=== PATIENT | female | born 1960 | race Caucasian/White ===

== ENCOUNTER → 2016-04-30 | Outpatient (CLI) | payer BC ==
[~2016-04-30] MED LIST: BISO1TAB39 PO; DICY10CA12 PO; ENAL5TAB PO; RT-ALBUTEROL SULF 2.5 MG/3 ML PRE-MIX VIAL INH ONE; RT-ALBUTEROL SULF 2.5 MG/3 ML PRE-MIX VIAL ONE
== END ==
LOC: RT 12:46
PROVIDERS: ATTEND Nurse Practitioner Family
DX: R06.02 Shortness of breath (principal); R05 Cough
CPT/HCPCS: 94060; 94640; 94726; 94729

== ENCOUNTER → 2016-05-13 | Outpatient (CLI) | payer BC ==
[~2016-05-13] VITALS: Ht 170.2 cm; Wt 72.6 kg
[~2016-05-13] MED LIST changes: +CATHETER FLUSH 10 ML SYR IV PRN; +REGADENOSON 0.4 MG/5 ML SYR (LEXISCAN) IV ONE; -RT-ALBUTEROL SULF 2.5 MG/3 ML PRE-MIX VIAL INH ONE; -RT-ALBUTEROL SULF 2.5 MG/3 ML PRE-MIX VIAL ONE; +amLODIPine 5 MG (NORVASC) TAB ONE; +amLODIPine 5 MG (NORVASC) TAB PO NR
[2016-05-13 13:22] VITALS: BP 193/89
[2016-05-13 13:32] VITALS: BP 207/100
[2016-05-13 13:34] VITALS: BP 192/94
[2016-05-13 13:38] VITALS: BP 173/90
[2016-05-13 14:06] VITALS: BP 174/88
--- NOTE | 2016-05-14 07:53 | ECHOCARDIOGRAPHY REPORT ---
PROCEDURE PHYSICIAN: JUDY WITT DATE OF PROCEDURE: 05/13/2016 TWO DIMENSIONAL ECHOCARDIOGRAM REPORT PRIMARY PHYSICIAN: Dr. Taveras OTHER PHYSICIAN: REFERRING PHYSICIAN: ORDERING PHYSICIAN: ATTENDING PHYSICIAN: Dr. Gissel Witt FAMILY PHYSICIAN: READING PHYSICIAN: INDICATION FOR THE PROCEDURE: 1. Shortness of breath. 2. Dizziness. 3. Hypertension. MEASUREMENTS DERIVED VALUES LV DIAMETER (LAX) NORMALS NORMALS Diastolic (3.6-5.2) Eject. Fract. (60%+/-6%) Systolic (2.3-3.9) Diastolic Vol. % Shortening (0.22-0.42) Systolic Vol. Aortic Root IVS THICKNESS Diastolic (0.6-1.1) LVPW THICKNESS Diastolic (0.6-1.1) LA DIAMETER Systolic (2.1-3.7) FINDINGS: 1. Sinus rhythm. 2. Left atrial dimensions are mildly enlarged. Left atrial diameter is 4.1 cm. 3. Aortic root dimensions are normal. 4. Left ventricular systolic function is mildly reduced. Left ventricular ejection fraction is 45 to 50%. No LVH is present. 5. There are no wall motion abnormalities. 6. Right heart dimensions are normal. 7. There is no evidence of pericardial effusion. 8. Diastolic function is normal. 9. IVC is dilated which is 2.1 cm with no significant respiratory variation. VALVULAR STRUCTURE OF THE HEART: Mild pulmonic regurgitation, mild mitral regurgitation, mild tricuspid regurgitation. RVSP is 33 mmHg. Aortic valve is normal with no significant stenosis or regurgitation. CONCLUSION: 1. LV and RV size and function is normal. 2. LVEF is mildly reduced with an EF of 45 to 50%. 3. There is no significant valvular heart disease. 4. Mild pulmonary hypertension is present with an RVSP of 33 mmHg. 5. IVC is dilated which suggest increased right atrial pressure. Job ID: [id number] Dictated Date: 05/13/2016 14:05:20 Retail Services Professional Date: 05/14/2016 07:50:00 / milind CALLE
--- NOTE | 2016-05-14 09:00 | STRESS TEST ---
PROCEDURE PHYSICIAN: JUDY WITT DATE OF PROCEDURE: 05/13/2016 PHARMACOLOGICAL NUCLEAR STRESS TEST REPORT: PRIMARY PHYSICIAN: Dr. Celestina Taveras. ATTENDING PHYSICIAN: Dr. Gissel Witt DIAGNOSES: 1. Shortness of breath. 2. Dizziness. 3. Hypertension. PROCEDURE: The patient was brought to the stress lab after informed consent was taken. Initially we wanted to perform exercise nuclear stress test. However, the blood pressure was 204/101 mmHg. Therefore the stress test was converted to pharmacological nuclear stress test. This was done according to the Lexiscan protocol. 0.4 mg of Lexiscan was given for the stress testing. Low grade exercise was also performed. Resting heart rate was 60 bpm and blood pressure was 204/101 mmHg. Maximum heart rate was 114. Maximum blood pressure was 207/100 mmHg. Baseline EKG showed sinus rhythm. There were occasional PVCs noted. There was no chest pain or shortness of breath. The stress test was completed secondary to completion of protocol. 9.61 mCi of Myoview were given for rest images and 32.5 mCi of Myoview were given for stress images. Review of myocardial perfusion imaging showed a TID of 1.11. Ejection fraction of 64%. End-diastolic volume was 62 mL and end-systolic volume of 22 mL. Gated images show normal wall motion. There is a small, mild severity apical/distal anterior reversible perfusion defect. CONCLUSION: 1. Pharmacological stress test was negative for ischemia. 2. The patient was severely hypertensive. She was given her home medication which included bisoprolol and hydrochlorothiazide. She was also given 5 mg of amlodipine and was started on 5 mg of amlodipine every day. 3. There is a small, mild severity apical/distal anterior reversible defect and presence of normal wall motion, this may be an artifact. Clinical correlation is recommended. Job ID: [id number] Dictated Date: 05/13/2016 14:34:14 Java Security Engineer Date: 05/14/2016 08:54:15 / milind
== END ==
LOC: CARD 10:46
PROVIDERS: ATTEND Internal Medicine Interventional Cardiology
DX: I10 Essential (primary) hypertension (principal); R42 Dizziness and giddiness; R06.02 Shortness of breath; Z82.49 Family history of ischemic heart disease and other diseases of the circulatory system; Z82.3 Family history of stroke
CPT/HCPCS: 78452; 93017; 93306

== ENCOUNTER → 2016-05-13 | Outpatient (CLI) | payer BC ==
[~2016-05-13] MED LIST changes: -CATHETER FLUSH 10 ML SYR IV PRN; +IOHEXOL 350 MG/ML 100 ML (OMNIPAQUE 350) VIAL IV ONE; +NS 100 ML (IVPB) BAG IV ONE; -REGADENOSON 0.4 MG/5 ML SYR (LEXISCAN) IV ONE; -amLODIPine 5 MG (NORVASC) TAB ONE; -amLODIPine 5 MG (NORVASC) TAB PO NR
--- NOTE | 2016-05-13 15:49 | Diagnostic Imaging Report ---
PROCEDURE: CT chest with contrast only. TECHNIQUE: Multiple contiguous axial images were obtained through the chest after administration of intravenous contrast. INDICATION: Persistent cough, shortness of breath, chest pain symptoms since December. CONTRAST: 75 mL Omnipaque 350 was given intravenously. COMPARISON STUDY: Chest from 02/15/2011. FINDINGS: Vascular structures appear normal. No calcification is present. No pulmonary emboli are identified. The heart size is normal. There is no abnormal adenopathy. The visualized portions of the abdomen appear normal. The lungs are clear. No pleural effusions or pulmonary nodules are present. The osseous structures demonstrate some lateral osteophytes. No osseous stenosis is present. No fractures are identified. IMPRESSION: There are minimal degenerative changes of the thoracic spine. No acute findings are seen in the chest. Dictated by: Dictated on workstation # [id number]
== END ==
LOC: RAD 12:17
PROVIDERS: ATTEND Nurse Practitioner Family
DX: R05 Cough (principal); R06.02 Shortness of breath
CPT/HCPCS: 71260

== ENCOUNTER → 2016-05-13 | Outpatient (CLI) | payer BC ==
[~2016-05-13] MED LIST changes: -IOHEXOL 350 MG/ML 100 ML (OMNIPAQUE 350) VIAL IV ONE; -NS 100 ML (IVPB) BAG IV ONE
[2016-05-13 11:35] LABS: ALBUMIN 4.4 G/DL (3.2-4.5); BILIRUBIN,TOTAL 0.3 MG/DL (0.1-1.0); CALCIUM 9.7 MG/DL (8.5-10.1); CREATININE SERUM 1.03 MG/DL (0.60-1.30); POTASSIUM 3.7 MMOL/L (3.6-5.0); TOTAL PROTEIN 7.3 G/DL (6.4-8.2)
== END ==
LOC: LAB 10:50
PROVIDERS: ATTEND Nurse Practitioner Family
DX: R06.02 Shortness of breath (principal); R05 Cough
CPT/HCPCS: 36415; 80053

== ENCOUNTER 2016-08-13 11:35 | Outpatient (RCR) | payer BC | END 2016-08-24 12:02 | disposition home or self-care (01) | PROVIDERS: ATTEND Emergency Medicine | DX: G56.12 Other lesions of median nerve, left upper limb (principal) ==

== ENCOUNTER → 2017-01-14 | Outpatient (CLI) | payer BC ==
[~2017-01-14] MED LIST changes: +BENZ-36 PO; +CLON0.1T PO; +DOCU-143 PO; +DOXY100T2 PO; +ESOM40CA52 PO; +LORA0.5T PO; +NEBI5TAB8 PO; +OSEL75CA15 PO; +SUCR1TAB PO; +VALS80TA30 PO
== END ==
LOC: CARD 10:34
PROVIDERS: ATTEND Internal Medicine Interventional Cardiology
DX: I42.9 Cardiomyopathy, unspecified (principal)
CPT/HCPCS: 93306

== ENCOUNTER 2017-01-27 16:37 | Inpatient (IN) | payer BC ==
[~2017-01-27] VITALS: Ht 170.2 cm; Wt 72.6 kg
[~2017-01-27 16:37] MED LIST changes: -BENZ-36 PO; -CLON0.1T PO; -DOCU-143 PO; -DOXY100T2 PO; -ESOM40CA52 PO; -LORA0.5T PO; -NEBI5TAB8 PO; -OSEL75CA15 PO; -SUCR1TAB PO; -VALS80TA30 PO
--- OUTSIDE RECORDS SUMMARY | 2017-01-27 16:42 | XMS REPORT | Continuity of Care Document ---
Author Author [employer] Organization [facility] Address Unknown Phone Unavailable Care Team Providers Care Pianos [employer] Salesperson Name Role Phone [employer] Unavailable Unavailable Problems Medications Allergies, Adverse Reactions, Alerts Immunizations Results Vital Signs Encounters Location Location Details Encounter Type Encounter Number Reason For Visit Attending Provider ADM Date DC Date Status Source OUTPATIENT [id number] Kennedy GONGORA 12/15/2016 12/15/2016 Active [facility] OP SURGERY [id number] Active [facility] Brenda GONGORA Active [facility] Procedures Plan of Care Social History Assessment and Plan Family History Value Date Source Advance Directives Order Name Results Value Date Source
--- OUTSIDE RECORDS SUMMARY | 2017-01-27 16:42 | XMS REPORT | Encounter Summary ---
Author Author [facility] Organization [facility] Address Unknown Phone Unavailable Care Team Providers Care External Auditor Name Role Phone PCP Unavailable Encounter Details Date Type Department Care Team Description 01/20/2017 Procedure Pass Main Operating Room [address] [place] [address] Social History Tobacco Use Types Packs/Day Years Used Date Never Smoker Smokeless Tobacco: Never Used Sex Assigned at Date Recorded Not on file as of this encounter Plan of Treatment Not on fileas of this encounter Visit Diagnoses Not on filein this encounter
--- OUTSIDE RECORDS SUMMARY | 2017-01-27 16:42 | XMS REPORT | Clinical Summary ---
Author Author [facility] Organization [facility] Address Unknown Phone Unavailable Care Team Providers Care Heating Repair Technician Name Role Phone PCP Unavailable Source Comments Some departments are not documenting in the electronic medical record. If you do not see the information that you expected, contact Release of Information in the Health Information Management department at [phone] for further assistance in locating additional records.[facility] Allergies No Known Allergies Current Medications Prescription Sig. Disp. Refills Start End Date Status Date valsartan (DIOVAN) 80 mg Take 80 mg by mouth Active tablet daily. other medication (INJ) 1 Dose. Allergy shots Active oxyCODONE (ROXICODONE) 5 Take 1-2 tablets by mouth 20 tablet 0 Active mg tablet every 4 hours as needed 17 for Pain senna/docusate Take 1 tablet by mouth 30 tablet 1 01/21/20 Active (SENOKOT-S) 8.6/50 mg daily. 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 Carpal tunnel syndrome on left 12/16/2016 Overview: Added automatically from request for surgery [id number] Encounters Date Type Specialty Care Team Description 01/20/2017 Hospital Kennedy Cherry MD Carpal tunnel syndrome on Encounter left 01/20/2017 Procedure Pass 01/20/2017 Surgery Kennedy Cherry MD LEFT OPEN CARPAL TUNNEL RELEASE, MEDIAN NERVE EXPLORATION 01/19/2017 Anesthesia Viki Bell, FUNERAL CAR DRIVER Event 12/16/2016 Orders Only Orthopedic Surgery Kennedy Cherry MD Surgery, elective (Primary Dx) 12/16/2016 Prep for Case Orthopedic Surgery Kennedy Cherry MD 12/15/2016 Hospital Radiology Kennedy Cherry MD Encounter 12/15/2016 Office Visit Orthopedic Surgery Kennedy Cherry MD Surgery follow-up (Primary Dx);Carpal tunnel syndrome on left;Arthritis of left wrist from Last 3 Months Social History Tobacco Use Types Packs/Day Years Used Date Never Smoker Smokeless Tobacco: Never Used Sex Assigned at Date Recorded Not on file Last Filed Vital Signs Vital Sign Reading Time Taken Blood Pressure 144/80 01/20/2017 4:00 PM CDT Pulse 75 01/20/2017 4:00 PM CDT Temperature 36.7 C (98.1 F) 01/20/2017 2:44 PM CDT Respiratory Rate - - Oxygen Saturation 95% 01/20/2017 4:00 PM CDT Inhaled Oxygen - - Concentration Weight 74.5 kg (164 lb 3.9 oz) 01/20/2017 11:24 AM CDT Height 170.2 cm (5' 7") 01/20/2017 11:24 AM CDT Body Mass Index 25.72 01/20/2017 11:24 AM CDT Plan of Treatment Health Maintenance Due Date Last Done Comments HEPATITIS C SCREENING 1960 PHYSICAL (COMPREHENSIVE) 06/22/1966 EXAM PERTUSSIS VACCINE 06/22/1970 TETANUS VACCINE 06/22/1976 CERVICAL CANCER SCREENING 06/22/1989 BREAST CANCER SCREENING 1999 COLORECTAL CANCER 06/22/2009 SCREENING INFLUENZA VACCINE 01/23/2017 Procedures Procedure Name Priority Date/Time Associated Diagnosis Comments LEFT OPEN CARPAL TUNNEL 01/20/2017 Carpal tunnel syndrome on RELEASE, MEDIAN NERVE 11:10 AM CDT left EXPLORATION from Last 3 Months Results * FINGER MIN 2V LEFT THUMB (12/15/2016 3:08 PM) Specimen Performing Laboratory Left [facility] RAD RESULTS Impressions FINDINGS/IMPRESSION: Postsurgical changes from first [facility] resection arthroplasty in standard alignment. No evident complications. Approved by Oswaldo Nugent D.O. on 12/15/2016 4:41 PM By my electronic signature, I attest that I have personally reviewed the images for this examination and formulated the interpretations and opinions expressed in this report Finalized by Shaun Moody M.D. on 12/15/2016 5:14 PM. Dictated by Oswaldo Nugent D.O. on 12/15/2016 3:09 PM. Narrative FINGER MIN 2V LEFT THUMB CLINICAL HISTORY: Female, 56 years old. Surgery follow-up. Left thumb status post arthroplasty. COMPARISON:None TECHNIQUE:FINGER MIN 2V LEFT THUMB Procedure Note Interface, Radiant Results - 12/15/2016 5:17 PM CDT FINGER MIN 2V LEFT THUMB CLINICAL HISTORY: Female, 56 years old. Surgery follow-up. Left thumb status post arthroplasty. COMPARISON: None TECHNIQUE: FINGER MIN 2V LEFT THUMB IMPRESSION FINDINGS/IMPRESSION: Postsurgical changes from first CMC resection arthroplasty in standard alignment. No evident complications. Approved by Oswaldo Nugent D.O. on 12/15/2016 4:41 PM By my electronic signature, I attest that I have personally reviewed the images for this examination and formulated the interpretations and opinions expressed in this report Finalized by Shaun Moody M.D. on 12/15/2016 5:14 PM. Dictated by Oswaldo Nugent D.O. on 12/15/2016 3:09 PM. from Last 3 Months
--- OUTSIDE RECORDS SUMMARY | 2017-01-27 16:43 | XMS REPORT | Encounter Summary ---
Author Author [facility] Organization [facility] Address Unknown Phone Unavailable Care Team Providers Care Car Jockey Name Role Phone PCP Unavailable Reason for Visit * Auth/Cert Status Reason Specialty Diagnoses / Referred By Referred To Procedures Contact Contact Diagnoses Carpal tunnel syndrome on left unknown P rocedures UT NEUROPLASTY &/TRANSPOS MEDIAN NRV CARPAL TUNNE UT NEUROPLASTY &/TRANSPOS MEDIAN NRV CARPAL TUNNE Left open carpal tunnel release, possible nerve wrapping versus nerve graft Encounter Details Date Type Department Care Team Description 01/20/2017 Hospital Main Operating Room Kennedy Cherry MD Carpal tunnel syndrome on Encounter [address] [place] [address] [address] [place] [address] [phone] Social History Tobacco Use Types Packs/Day Years Used Date Never Smoker Smokeless Tobacco: Never Used Sex Assigned at Date Recorded Not on file as of this encounter Last Filed Vital Signs Vital Sign Reading [...] Mass Index 25.72 01/20/2017 11:24 AM CDT in this encounter Medications at Time of Discharge Medication Sig. Disp. Refills Start Date End Date other medication (INJ) 1 Dose. Allergy shots oxyCODONE (ROXICODONE) 5 Take 1-2 tablets by mouth 20 tablet 0 2016 mg tablet every 4 hours as needed for Pain senna/docusate Take 1 tablet by mouth 30 tablet 1 01/20/2017 (SENOKOT-S) 8.6/50 mg daily. tablet valsartan (DIOVAN) 80 mg Take 80 mg by mouth tablet daily. as of this encounter H&P Notes * Lesley Cowan PA-C - 01/20/2017 7:12 AM CDT Formatting of this note may be different from the original. Admission History and Physical Examination Name: Brie Lantigua Admission Date: 01.20.17 Assessment/Plan: Principal Problem: Carpal tunnel syndrome on left Left open carpal tunnel release, possible nerve wrapping vs nerve graft __ Primary Care Physician: Referral Self Chief Complaint: Left hand numbness History of Present Illness: Brie Lantigua is a 56 y.o. female presents with a history of a prior basilar thumb arthroplasty and carpal tunnel release with current complaints of worsening carpal tunnel symptoms. She would now like to proceed with the above operation. She understands the risks and benefits. History of Present Illness Past Medical History: Diagnosis Date HTN (hypertension) Past Surgical History: Procedure Laterality Date APPENDECTOMY CARPAL TUNNEL RELEASE Left ELBOW SURGERY epicondylitis reconstruction Right FOOT SURGERY Tendon Left SURGERY suspension arthorplasty Left No family history on file. Social History Social History Marital status: Spouse name: N/A Number of children: N/A Years of education: N/A Social History Main Topics Smoking status: Never Smoker Smokeless tobacco: Never Used Alcohol use Not on file Drug use: Not on file Sexual activity: Not on file Other Topics Concern Not on file Social History Narrative No narrative on file Immunizations (includes history and patient reported): There is no immunization history on file for this patient. Allergies: Review of patient's allergies indicates no known allergies. Medications: No current facility-administered medications for this encounter. Current Outpatient Prescriptions Medication Sig other medication (INJ) 1 Dose. Allergy shots valsartan (DIOVAN) 80 mg tablet Take 80 mg by mouth daily. ROS Physical Exam MSK: Full ROM left wrist and hand Neuro: Positive tinel's and phalens left wrist Skin: Intact, no infection Vital Signs: Last Filed In 24 Hours Vital Signs: 24 Hour Range Lab/Radiology/Other Diagnostic Tests: Pertinent labs reviewed Pertinent radiology reviewed. Lesley COWAN PA-C Pager in this encounter Miscellaneous Notes * Procedures (Immed Post or Bedside) - Benson Singh MD - 01/20/2017 2: 31 PM CDT Brief Operative Note Name: Brie Lantigua is a 56 y.o. female : 1960 DATE OF OPERATION: 01/20/2017 Date: 01/20/2017 Preoperative Dx: Carpal tunnel syndrome on left [G56.02] Post-op Diagnosis * Carpal tunnel syndrome on left [G56.02] Procedure(s) (LRB): LEFT OPEN CARPAL TUNNEL RELEASE, MEDIAN NERVE EXPLORATION (Left) Anesthesia Type: Defer to Anesthesia Surgeon(s) and Role: * Kennedy Cherry MD - Primary * Benson Singh MD - Resident - Assisting Findings: Intact transverse carpal ligament Estimated Blood Loss: No blood loss documented. Specimen(s) Removed/Disposition: * No specimens in log * Complications: None Implants: None Drains: None Disposition: PACU - stable Benson Singh MD Pager [phone] in this encounter Plan of Treatment Not on fileas of this encounter Procedures Procedure Name Priority Date/Time Associated Diagnosis Comments LEFT OPEN CARPAL TUNNEL 01/20/2017 Carpal tunnel syndrome on RELEASE, MEDIAN NERVE 11:10 AM CDT left EXPLORATION in this encounter Visit Diagnoses Diagnosis Carpal tunnel syndrome on left Carpal tunnel syndrome in this encounter Admitting Diagnoses Diagnosis Carpal tunnel syndrome on left - unknown Carpal tunnel syndrome in this encounter Administered Medications Medication Order MAR Action Action Date Dose Rate Site fentaNYL citrate PF (SUBLIMAZE) Given 01/20/2017 50 mcg injection 50 mcg 15:00 CDT 50 mcg, Intravenous, EVERY 5 MIN PRN, Starting So 01/20/17 at 1405, Until So 01/20/17 at 1838, Pain Injectable, For Pain Score 7-10, Maximum total dose of 200 mcg Hold for RR < 10 Given 01/20/2017 25 mcg 15:22 CDT Given 01/20/2017 25 mcg 15:28 CDT lactated ringers infusion Given - New 01/20/2017 1,000 mL 20 mL/hr 1,000 mL, 1,000 mL, Intravenous, at 20 Bag 11:38 CDT mL/hr, CONTINUOUS, Starting So 01/20/17 at 1115, Until So 01/20/17 at 1838, Pre-Op Given - New Bag 01/20/2017 13:59 CDT oxyCODONE (ROXICODONE, OXY-IR) tablet Given 01/20/2017 10 mg 5-10 mg 15:11 CDT 5-10 mg, Oral, EVERY 4 HOURS PRN, Starting So 01/20/17 at 1457, Until So 01/20/17 at 1838, Pain PO, PACU (only) in this encounter
--- OUTSIDE RECORDS SUMMARY | 2017-01-27 16:43 | XMS REPORT | Encounter Summary ---
Author Author [facility] Organization [facility] Address Unknown Phone Unavailable Care Team Providers Care Vegetable Harvest Machine Operator Name Role Phone PCP Unavailable Reason for Referral * Consult, Test & Treat Status Reason Specialty Diagnoses / Referred By Referred To Procedures Contact Contact New Request Specialty Diagnoses Kennedy Cherry Services Surgery, Required elective [address] [place] [address] Encounter Details Date Type Department Care Team Description 12/16/2016 Orders Only [facility] Kennedy Cherry MD Surgery , elective Physicians - Orthopedics [address] [facility] (Primary Dx) [address]ST AND [address]ND FLOOR [address] [place] [address] ORTHOPEDICS [facility] [phone] [place] [address] Social History Tobacco Use Types Packs/Day Years Used Date Never Smoker Smokeless Tobacco: Never Used Sex Assigned at Date Recorded Not on file as of this encounter Plan of Treatment Name Priority Associated Diagnoses Order Schedule AMB REFERRAL TO PRE ANESTHESIA TESTING Routine Surgery, elective Ordered : 12/16/2016 as of this encounter Visit Diagnoses Diagnosis Surgery, elective - Primary Unspecified elective surgery for purposes other than remedying health states in this encounter
--- OUTSIDE RECORDS SUMMARY | 2017-01-27 16:43 | XMS REPORT | Encounter Summary ---
Author Author [facility] Organization [facility] Address Unknown Phone Unavailable Care Team Providers Care Timber Repairer Name Role Phone PCP Unavailable Reason for Visit * Reason Comments Consult Encounter Details Date Type Department Care Team Description 12/15/2016 Office Visit [facility] Kennedy Cherry MD Surgery follow-up Physicians - Orthopedics [address] [facility] (Primary Dx);Carpal 1ST AND 2ND FLOOR MS 3017 tunnel syndrome on [address] [place] [address] left;Arthritis of left ORTHOPEDICS [facility] [phone] [place] [address] Social History Tobacco Use Types Packs/Day Years Used Date Never Smoker Smokeless Tobacco: Never Used Sex Assigned at Date Recorded Not on file as of this encounter Last Filed Vital Signs Vital Sign Reading Time Taken Blood Pressure 174/80 12/15/2016 2:40 PM CDT Pulse 67 12/15/2016 2:40 PM CDT Temperature - - Respiratory Rate - - Oxygen Saturation - - Inhaled Oxygen - - Concentration Weight 75.7 kg (166 lb 12.8 oz) 12/15/2016 2:40 PM CDT Height - - Body Mass Index - - in this encounter Progress Notes * Kennedy Cherry MD - 12/15/2016 3:10 PM CDT HISTORY OF PRESENT ILLNESS: Brie, who goes by Lisah, 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 She is seeing us today for problems with her left basilar thumb joint. She had a trapezial arthroplasty and utilization of a tightrope type suspension on 06/11/14. She says afterward she had severe pain with what sounds like median nerve type symptoms. Therefore, on 09/24/14, she had removal of the tightrope with small plates associated with it. She says she was told she had a metal allergy. She said that was why she was having so much pain, according to the doctor who did her procedure. Unfortunately, after that procedure, she has continued to have pain. What is somewhat striking is that she said the pain is getting worse rather than better, despite the long duration from the time of both operations. She said she has pain in her thumb with wrist and twisting motions of her index finger. 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 She has considerable thenar atrophy at this point. She has had two injections with no relief. The hypopigmentation and thinness of skin would be consistent with steroid injections. She has had therapy for approximately fourteen weeks after the surgeries. PAST SURGICAL HISTORY: Appendectomy, carpal tunnel release, elbow surgery, foot surgery, and the suspension arthroplasty. PAST MEDICAL HISTORY: Hypertension. FAMILY HISTORY: Reviewed. CURRENT MEDICATIONS: Diovan. ALLERGIES: No known drug allergies. PHYSICAL EXAMINATION: Examination today shows an individual who has considerable tenderness but not so much at the basilar thumb joint, but over the thenar musculature and over the carpal canal area. She has what appears to have been an endoscopic carpal tunnel release and it appears to be through a single portal. The thenar atrophy is impressive. There is some thenar function possibly the short head of the flexor pollicis brevis. She really does not demonstrate a significantly positive grind test. There is some discomfort with the motion but otherwise it does not appear to be too severe. She is able to extend her MCP joint and the IP joint of her thumb. She complains of numbness in the median nerve distribution. She has some diffuse pains but our tests for pronator syndrome was essentially negative. There is no point tenderness near the superficialis hiatus or the pronator teres. Provocative maneuvers of flexion of the long finger through the FDS or pronation do not produce significant discomfort. Where she does have significant discomfort is over the course of the median nerve or even over the motor branch of the median nerve. She has some hypersensitivity to touch. She actually took her hand and sat on it as a way of decreasing the discomfort. She says her electrodiagnostician recommended that she get a second opinion. Today there are no overt signs of sympathetic overflow. There is not excessive sweating, color changes, or hair growth. She does not have skin changes consistent with excessive sympathetic overflow. Review of the operative note by Dr. Porras on 06/11/14 shows this was an excision of the trapezium. Tightrope was utilized. The operation on 09/24/14 reveals that utilized a centerline dilator. He then used the centerline knife that was deployed from distal to proximal fashion. He then removed the tightrope. Alfred Odell did electrodiagnostic studies on 06/23/16. Conclusion was moderate persistent left median motor reduction to the APB consistent with persistent left knee motor neuropathy, site not determined. He makes a comment that clinical exam raises concern for left pronator teres entrapment. As the patient does not have weakness in the superficialis to the index and long, nor does the patient have weakness to flexion of the IP joint of the thumb, I do not think this is a likely cause of her problems. The patient is adamant that her problems are due to her carpal tunnel area. She is also adamant that her problems began after her first operation. Her electrodiagnostic studies showed that the amplitude was 3.7 mV with lower limits of normal being 8. The electrodiagnostic studies on 05/12/15 shows the amplitude to be 4.3 mV versus 8. Latencies, however, were relatively normal. IMPRESSION: Persistent median nerve symptoms status post basilar thumb procedure and subsequent carpal tunnel release. PLAN: I am struck by this patients severe pain complaints. I am struck by the fact that she is adamant that her severe pain of this type occurred after her operation. I think the idea that this is due to pronator syndrome, is probably not the case. She really is not symptomatic in that area. I think she has some type of scarring or adhesions or something going on to her median nerve in her carpal canal, or possibly as an isolated problem to the motor branch of the median nerve. Her greatest source of discomfort is to the thumb, with both paresthesias, numbness, and of course the objective thenar atrophy. It is possible that whatever damage or whatever has occurred to the median nerve is not fixable at this very late date. I do not think the suspension arthroplasty needs to be revised, since at least on the current x-rays, there is not significant proximal migration. Her symptoms are certainly not consistent with arthropathy at the basilar thumb joint. I think if there is a surgery, she might consider an open carpal tunnel release with possible nerve wrapping if there is a selected injury to the external portion of the nerve and if that portion of the nerve has a transection, then possibly nerve grafting would be of value. I told her I am concerned about her pain response and the fact that she already has considerable pain. At this point though, she is not taking any opioids. She certainly seems to have ongoing discomfort. I would recommend that she consider an open carpal tunnel release as mentioned above. There are risks, but I think they are fairly limited. It is possible we may find nothing at all at this late date from her procedures. She would like to have the operation. They understand and accept the risks. Dictated by Kennedy Cherry MD and transcribed via [employer]. Copied and pasted into O2 by Kelly Caballero, 12/20/2016 1:31 PM * Kelly Caballero - 12/15/2016 3:10 PM CDT Formatting of this note may be different from the original. Name: Brie Lantigua Age: 56 y.o. 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 She continues to have pain in thumb and now wrist with twisting motion and index finger. She continues to have numbness & aching in thumb, and index fingers. She had 2 injections after surgery for carpal tunnel with no relief. She went to therapy for a total of 14 weeks after surgeries. Date of Injury/Duration: Mechanism of Injury: Treatment to Date/Studies: Surgical History: Past Surgical History: Procedure Laterality Date APPENDECTOMY CARPAL TUNNEL RELEASE Left ELBOW SURGERY epicondylitis reconstruction Right FOOT SURGERY Tendon Left SURGERY suspension arthorplasty Left Medical History: Past Medical History: Diagnosis Date HTN (hypertension) Family History: No family history on file. Current Medications: Outpatient Encounter Prescriptions as of 12/15/2016 Medication Sig Dispense Refill other medication (INJ) 1 Dose. Allergy shots valsartan (DIOVAN) 80 mg tablet Take 80 mg by mouth daily. No facility-administered encounter medications on file as of 12/15/2016. Allergies: Review of patient's allergies indicates no known allergies. Date of Service: 12/15/2016 Subjective: Brie Lantigua is a 56 y.o. female. History of Present Illness Review of Systems All other systems reviewed and are negative. Objective: other medication (INJ) 1 Dose. Allergy shots valsartan (DIOVAN) 80 mg tablet Take 80 mg by mouth daily. Vitals: 12/15/16 1440 BP: 174/80 Pulse: 67 Weight: 75.7 kg (166 lb 12.8 oz) There is no height or weight on file to calculate BMI. Physical Exam Assessment and Plan: in this encounter Plan of Treatment Not on fileas of this encounter Results * FINGER MIN 2V LEFT THUMB [...] Oswaldo Nugent D.O. on 12/15/2016 3:09 PM. in this encounter Visit Diagnoses Diagnosis Surgery follow-up - Primary Follow-up examination, following unspecified surgery Carpal tunnel syndrome on left Carpal tunnel syndrome Arthritis of left wrist in this encounter
--- OUTSIDE RECORDS SUMMARY | 2017-01-27 16:43 | XMS REPORT | Encounter Summary ---
Author Author [facility] Organization [facility] Address Unknown Phone Unavailable Care Team Providers Care Visual Specialist Name Role Phone PCP Unavailable Reason for Visit * Auth/Cert Status Reason Specialty Diagnoses / Referred By Referred To Procedures Contact Contact Diagnoses Carpal tunnel syndrome on left unknown P rocedures [facility] &/TRANSPOS MEDIAN NRV CARPAL TUNNE VA NEUROPLASTY &/TRANSPOS MEDIAN NRV CARPAL TUNNE Left open carpal tunnel release, possible nerve wrapping versus nerve graft Encounter Details Date Type Department Care Team Description 01/20/2017 Surgery Main Operating Room Kennedy Cherry MD LEFT OPEN CARPAL TUNNEL [address], [place] [address] [address] [phone] [place] [address] [phone] Social History Tobacco Use Types Packs/Day Years [...] PACU - stable Benson Singh MD Pager [phone] in this encounter Plan of Treatment Not [...] Given - New Bag 01/20/2017 13:59 CDT ortho irrigation 1 L bottle Given 01/20/2017 1,000 mL Hand, Left INTRA-PROCEDURE MED, Starting So 13:06 CDT 01/20/17 at 1306, Until So 01/20/17 at 1838, Intra-op oxyCODONE (ROXICODONE, OXY-IR) tablet Given 01/20/2017 10 mg 5-10 mg 15:11 CDT 5-10 mg, Oral, EVERY 4 HOURS PRN, Starting So 01/20/17 at 1457, Until So 01/20/17 at 1838, Pain PO, PACU (only) ropivacaine (PF) (NAROPIN) 0.2% (2 Given 01/20/2017 8 mL Hand, Left mg/mL) injection 14:15 CDT INTRA-PROCEDURE MED, Starting So 01/20/17 at 1415, Until So 01/20/17 at 1838, Intra-op in this encounter
--- OUTSIDE RECORDS SUMMARY | 2017-01-27 16:43 | XMS REPORT | Continuity of Care Document ---
Author Author [facility] Organization [facility] Address Unknown Phone Unavailable Allergies Active Description Code Type Severity Reaction Onset Reported/Identified Relationship to Patient Clinical Status Yes NKANo Known Allergies NKA Miscellaneous Allergy Unknown N/ A 10/20/2006 Medications Problems Date Dx Coded Attending Type Code Diagnosis Diagnosed By 03/24/1201 ALONZO COVINGTON DO Ot G56.12 OTHER LESIONS OF MEDIAN NERVE, LEFT UPPE 02/15/2011 Ot 530.81 ESOPHAGEAL REFLUX 02/15/2011 Ot 569.89 INTESTINAL DISORDERS NEC 04/02/2011 Ot 726.91 EXOSTOSIS, SITE NOS 04/02/2011 Ot 735.4 OTHER HAMMER TOE 04/01/2014 Ot 726.91 04/01/2014 Ot V72.84 04/01/2014 Ot V74.8 04/01/2014 Ot 722.0 05/01/2014 CESILIA COX MD Ot 780.60 05/08/2014 Ot 786.2 05/08/2014 Ot 455.0 05/08/2014 Ot 455.9 05/08/2014 Ot 569.89 05/08/2014 Ot V76.51 05/08/2014 Ot 786.50 05/08/2014 Ot 562.10 05/08/2014 Ot 789.04 05/15/2014 Ot 786.2 05/15/2014 Ot 455.0 05/15/2014 Ot 455.9 05/15/2014 Ot 569.89 05/15/2014 Ot V76.51 05/15/2014 Ot 786.50 05/15/2014 Ot 562.10 05/15/2014 Ot 789.04 01/26/2016 Ot 726.91 EXOSTOSIS, SITE NOS 01/26/2016 Ot V72.84 EXAM PRE-OPERATIVE NOS 01/26/2016 Ot V74.8 SCREEN-BACTERIAL DIS NEC 01/26/2016 Ot 722.0 CERVICAL DISC DISPLACMNT 01/26/2016 CESILIA COX MD Ot 780.60 FEVER, UNSPECIFIED 01/28/2016 DAVI PRESSLEY MD Ot R94.6 ABNORMAL RESULTS OF THYROID FUNCTION COLIN 02/04/2016 DAVI PRESSLEY MD Ot R94.6 ABNORMAL RESULTS OF THYROID FUNCTION COLIN 04/01/2016 NILTON, LEDY J SURGEON'S ASSISTANT Ot R05 COUGH 04/01/2016 NILTON, LEDY J SURGEON'S ASSISTANT Ot Z80.1 FAMILY HISTORY OF MALIG NEOPLASM OF TRAC 04/14/2016 NILTON, LEDY J SURGEON'S ASSISTANT Ot R05 COUGH 04/14/2016 NILTON, LEDY J SURGEON'S ASSISTANT Ot Z80.1 FAMILY HISTORY OF MALIG NEOPLASM OF TRAC 04/22/2016 NILTON, LEDY J SURGEON'S ASSISTANT Ot J32.9 CHRONIC SINUSITIS, UNSPECIFIED 05/03/2016 MONA MARTIN RAPID OUTSOLE STITCHER Ot R05 COUGH 05/03/2016 MONA MARTIN APRN Ot R06.02 SHORTNESS OF BREATH 05/05/2016 NILTON, LEDY J SURGEON'S ASSISTANT Ot J32.9 CHRONIC SINUSITIS, UNSPECIFIED 05/07/2016 MONA MARTIN RAPID OUTSOLE STITCHER Ot R05 COUGH 05/07/2016 MONA MARTIN RAPID OUTSOLE STITCHER Ot R06.02 SHORTNESS OF BREATH 05/14/2016 Irasema MITCHELL MD Ot I10 ESSENTIAL (PRIMARY) HYPERTENSION 05/14/2016 Irasema MITCHELL MD Ot R06.02 SHORTNESS OF BREATH 05/14/2016 Irasema MITCHELL MD Ot R42 DIZZINESS AND GIDDINESS 05/14/2016 Irasema MITCHELL MD Ot Z82.3 FAMILY HISTORY OF STROKE 05/14/2016 Irasema MITCHELL MD Ot Z82.49 FAMILY HX OF ISCHEM HEART DIS AND OTH DI 05/14/2016 MONA MARTIN RAPID OUTSOLE STITCHER Ot R05 COUGH 05/14/2016 MONA MARTIN APRN Ot R06.02 SHORTNESS OF BREATH 05/17/2016 MONA MARTIN RAPID OUTSOLE STITCHER Ot R05 COUGH 05/17/2016 MONA MARTIN RAPID OUTSOLE STITCHER Ot R06.02 SHORTNESS OF BREATH 05/27/2016 Irasema MITCHELL MD Ot I10 ESSENTIAL (PRIMARY) HYPERTENSION 05/27/2016 Irasema MITCHELL MD Ot R06.02 SHORTNESS OF BREATH 05/27/2016 Irasema MITCHELL MD Ot R42 DIZZINESS AND GIDDINESS 05/27/2016 Irasema MITCHELL MD Ot Z82.3 FAMILY HISTORY OF STROKE 05/27/2016 Irasema MITCHELL MD Ot Z82.49 FAMILY HX OF ISCHEM HEART DIS AND OTH DI 05/27/2016 MONA MARTIN RAPID OUTSOLE STITCHER Ot R05 COUGH 05/27/2016 MONA MARTIN APRN Ot R06.02 SHORTNESS OF BREATH 05/27/2016 MONA MARTIN APRN Ot R05 COUGH 05/27/2016 MONA MARTIN APRN Ot R06.02 SHORTNESS OF BREATH 08/09/2016 ALONZO COVINGTON DO Ot G56.12 OTHER LESIONS OF MEDIAN NERVE, LEFT UPPE 08/24/2016 ALONZO COVINGTON DO Ot G56.12 OTHER LESIONS OF MEDIAN NERVE, LEFT UPPE 01/13/2017 HUAN SEGURA, DAVI Thakkar Ot R94.6 ABNORMAL RESULTS OF THYROID FUNCTION COLIN 01/13/2017 LEDY CALLAWAY SURGEON'S ASSISTANT Ot R05 COUGH 01/13/2017 LEDY CALLAWAY SURGEON'S ASSISTANT Ot Z80.1 FAMILY HISTORY OF MALIG NEOPLASM OF TRAC 01/13/2017 LEDY CALLAWAY SURGEON'S ASSISTANT Ot J32.9 CHRONIC SINUSITIS, UNSPECIFIED 01/13/2017 MONA MARTIN APRN Ot R05 COUGH 01/13/2017 MONA MARTIN APRN Ot R06.02 SHORTNESS OF BREATH 01/13/2017 Irasema MITCHELL MD Ot I10 ESSENTIAL (PRIMARY) HYPERTENSION 01/13/2017 Irasema MITCHELL MD Ot R06.02 SHORTNESS OF BREATH 01/13/2017 Irasema MITCHELL MD Ot R42 DIZZINESS AND GIDDINESS 01/13/2017 Irasema MITCHELL MD Ot Z82.3 FAMILY HISTORY OF STROKE 01/13/2017 Irasema MITCHELL MD Ot Z82.49 FAMILY HX OF ISCHEM HEART DIS AND OTH DI 01/13/2017 MONA MARTIN APRN Ot R05 COUGH 01/13/2017 MONA MARTIN RAPID OUTSOLE STITCHER Ot R06.02 SHORTNESS OF BREATH 01/13/2017 MONA MARTIN RAPID OUTSOLE STITCHER Ot R05 COUGH 01/13/2017 MONA MARTIN RAPID OUTSOLE STITCHER Ot R06.02 SHORTNESS OF BREATH 01/17/2017 Irasema MITCHELL MD Ot I42.9 CARDIOMYOPATHY, UNSPECIFIED Procedures Results Test Result Range Comprehensive metabolic panel - 05/13/16 11:07 Serum or plasma sodium measurement (moles/volume) 144 mmol/ L 135-145 Serum or plasma potassium measurement (moles/volume) 3.7 mmol/L 3.6-5.0 Serum or plasma chloride measurement (moles/volume) 107 mmol /L 98-107 Carbon dioxide 27 mmol/L 21-32 Serum or plasma anion gap determination (moles/volume) 10 mmol/L 5-14 Serum or plasma urea nitrogen measurement (mass/volume) 14 mg/dL 7-18 Serum or plasma creatinine measurement (mass/volume) 1.03 mg /dL 0.60-1.30 Serum or plasma urea nitrogen/creatinine mass ratio 14 NRG Serum or plasma creatinine measurement with calculation of estimated glomerular filtration rate 55 NRG Serum or plasma glucose measurement (mass/volume) 93 mg/dL 70-105 Serum or plasma calcium measurement (mass/volume) 9.7 mg/dL 8.5-10.1 Serum or plasma total bilirubin measurement (mass/volume) 0.3 mg/dL 0.1-1.0 Serum or plasma alkaline phosphatase measurement (enzymatic activity/volume) 77 U/L 40-136 Serum or plasma aspartate aminotransferase measurement (enzymatic activity/ volume) 28 U/L 5-34 Serum or plasma alanine aminotransferase measurement (enzymatic activity/volume ) 26 U/L 0-55 Serum or plasma protein measurement (mass/volume) 7.3 g/dL 6.4-8.2 Serum or plasma albumin measurement (mass/volume) 4.4 g/dL 3.2-4.5 Encounters ACCT No. Visit Date/Time Discharge Status Pt. Type Provider Facility Loc./Unit Complaint [id number] 01/14/2017 10:34:00 2016 23:59:59 CLS Outpatient Irasema MITCHELL MD [facility] CARD CARDIOMYOPATHY I42.9 [id number] 08/13/2016 11:35:00 2016 12:02:00 DIS Outpatient ALONZO COVINGTON DO [facility] REHAB PRONATOR TERES SYNDROME [id number] 05/13/2016 12:17:00 2016 23:59:59 CLS Outpatient MONA MARTIN APRN [facility] RAD SOB,ONGOING COUGH [id number] 05/13/2016 10:50:00 2016 23:59:59 CLS Outpatient MONA MARTIN APRN [facility] LAB SOB,COUGH [id number] 05/13/2016 10:46:00 2016 23:59:59 CLS Outpatient Irasema MITCHELL MD [facility] CARD SOB,DIZZINESS,HYPERTENSION,CAD,CVA, HTN [id number] 04/30/2016 12:46:00 2016 23:59:59 CLS Outpatient MONA MARTIN APRN [facility] RT SOB,ONGOING COUGH [id number] 04/21/2016 08:42:00 2015 23:59:59 CLS Outpatient LEDY CALLAWAY SURGEON'S ASSISTANT [facility] RAD CHRONIC SINUSITIS [id number] 03/31/2016 15:14:00 2015 23:59:59 CLS Outpatient LEDY CALLAWAY SURGEON'S ASSISTANT [facility] RAD CHRONIC COUGH,FAM HX OF LUNG [place] [id number] 01/26/2016 09:05:00 2015 23:59:59 CLS Outpatient DAVI PRESSLEY MD [facility] RAD ABNORMAL THYROID LABS [id number] 04/01/2014 10:32:00 2013 23:59:59 CLS Outpatient CESILIA COX MD [facility] LAB INFLUEZENA [id number] 05/08/2014 07:59:00 Document Registration [id number] 05/29/2012 09:57:00 Document Registration [id number] 04/02/2011 05:57:00 Document Registration [id number] 03/29/2011 13:41:00 Document Registration [id number] 02/15/2011 11:32:00 Document Registration [id number] 06/11/2010 08:49:00 Document Registration [id number] 04/02/2010 07:10:00 Document Registration [id number] 03/18/2010 06:29:00 Document Registration [id number] 09/05/2009 10:18:00 Document Registration
--- OUTSIDE RECORDS SUMMARY | 2017-01-27 16:43 | XMS REPORT | Encounter Summary ---
Author Author [facility] Organization [facility] Address Unknown Phone Unavailable Care Team Providers Care Capacity Management Specialist Name Role Phone PCP Unavailable Encounter Details Date Type Department Care Team Description 12/15/2016 Hospital [facility] Kennedy Cherry MD Encounter Hospital Radiology [address] [place] [address] [place] [address] [address] FLOOR [phone] [place] [id number] [phone] Social History Tobacco Use Types Packs/Day Years Used Date Never Smoker Smokeless Tobacco: Never Used Sex Assigned at Date Recorded Not on file as of this encounter Medications at Time of Discharge Medication Sig. Disp. Refills Start Date End Date other medication (INJ) 1 Dose. Allergy shots valsartan (DIOVAN) 80 mg Take 80 mg by mouth tablet daily. as of this encounter Plan of Treatment [...] this encounter Visit Diagnoses Diagnosis Surgery follow-up Follow-up examination, following unspecified surgery in this encounter
--- OUTSIDE RECORDS SUMMARY | 2017-01-27 16:43 | XMS REPORT | Encounter Summary ---
Author Author [facility] Organization [facility] Address Unknown Phone Unavailable Care Team Providers Care Nurse Rn Bsn Name Role Phone PCP Unavailable Reason for Visit * Auth/Cert Status Reason Specialty Diagnoses / Referred By Referred To Procedures Contact Contact Diagnoses Carpal tunnel syndrome on left unknown P rocedures HI NEUROPLASTY &/TRANSPOS MEDIAN NRV CARPAL TUNNE HI NEUROPLASTY &/TRANSPOS MEDIAN NRV CARPAL TUNNE Left open carpal tunnel release, possible nerve wrapping versus nerve graft Encounter Details Date Type Department Care Team Description 01/20/2017 Anesthesia Main Operating Room Viki Bell, [address] [place] [address] Social History Tobacco Use Types Packs/Day Years Used Date Never Smoker Smokeless Tobacco: Never Used Sex Assigned at Date Recorded Not on file as of this encounter OR Notes * Anesthesia Postprocedure Evaluation - Ernst Pastor MD - 01/20/2017 5:06 PM CDT Post-Anesthesia Evaluation Name: Brie Lantigua : 1960 Age: 56 y.o. Sex: female Procedure Date: 01/20/2017 Procedure: Procedure(s) with comments: LEFT OPEN CARPAL TUNNEL RELEASE, MEDIAN NERVE EXPLORATION - CASE LENGTH 90 MINUTES Surgeon: Surgeon(s): E MD Benson Wyatt MD Post-Anesthesia Vitals BP: 144/80 (01/20 1600) Temp: 36.7 C (98.1 F) (01/20 1444) Pulse: 75 (01/20 1600) Respirations: 19 PER MINUTE (01/20 1600) SpO2: 95 % (01/20 1600) O2 Delivery: None (Room Air) (01/20 1600) SpO2 Pulse: 74 (01/20 1600) Height: 170.2 cm (67") (01/20 1124) Post Anesthesia Evaluation Note Evaluation location: pre/post Patient participation: recovered; patient participated in evaluation Level of consciousness: alert Pain management: adequate Hydration: normovolemia Temperature: 36.0C - 38.4C Airway patency: adequate Perioperative Events Perioperative events: no Post-op nausea and vomiting: no PONV Postoperative Status Cardiovascular status: hemodynamically stable Respiratory status: spontaneous ventilation Follow-up needed: none Perioperative Events Perioperative Event: No Emergency Case Activation: No Associated attestation - Wagner Taylor MD - 01/20/2017 7:05 PM CDT Formatting of this note may be different from the original. ATTESTATION Post-Anesthesia Evaluation Attestation: I reviewed and agree the indicated post- anethesia care was provided. Staff name: Wagner Taylor MD Date: 01/20/2017 * Anesthesia Preprocedure Evaluation - China Noble MD - 01/20/2017 11:21 AM CDT Formatting of this note may be different from the original. Anesthesia Pre-Procedure Evaluation Name: Brie Lantigua : 1960 Age: 56 y.o. Sex: female Procedure Date: 01/20/2017 Procedure: Procedure(s) with comments: LEFT OPEN CARPAL TUNNEL RELEASE, POSSIBLE NERVE WRAPPING VERSUS NERVE GRAFT - CASE LENGTH 90 MINUTES Physical Assessment Vital Signs (last filed in past 24 hours): Patient History No Known Allergies Current Medications Medication Directions other medication (INJ) 1 Dose. Allergy shots valsartan (DIOVAN) 80 mg tablet Take 80 mg by mouth daily. Review of Systems/Medical History Patient summary reviewed Pertinent labs reviewed No history of anesthetic complications Pulmonary Seasonal allergies, nasal drainage Cardiovascular Exercise tolerance: >4 METS Hypertension, poorly controlled GI/Hepatic/Renal - negative Neuro/Psych Neuropathy Musculoskeletal Arthritis Endocrine/Other - negative Physical Exam Airway Findings Mallampati: II TM distance: >3 FB Neck ROM: full Mouth opening: good Dental Findings: Negative Cardiovascular Findings: Negative Pulmonary Findings: Negative Diagnostic Tests Hematology: No results found for: HGB, HCT, PLTCT, WBC, NEUT, ANC, LYMPH, ALC, ABSLYMPHCT, SOFIE, AMC, EOSA, ABC, BASOPHILS, MCV, MCH, MCHC, MPV, RDW General Chemistry: No results found for: NA, K, CL, CO2, GAP, BUN, CR, GLU, CA, KETONES, ALBUMIN, LACTIC, OBSCA, MG, TOTBILI, TOTBILCB, PO4 Coagulation: No results found for: PT, PTT, INR Anesthesia Plan ASA score: 2 Plan: regional for postoperative pain and general Induction method: intravenous NPO status: acceptable Comments: (Risks of GETA including sore throat, oral/dental injury, allergic reactions, PONV, aspiration, respiratory failure, OR, CVA discussed with patient who reports understanding and consents to anesthetic plan. Isabela Noble M.D. ) Informed Consent Anesthetic plan and risks discussed with patient. Plan discussed with: anesthesiologist and SCREW MACHINE SETTER. in this encounter Plan of Treatment Not on fileas of this encounter Visit Diagnoses Not on filein this encounter Administered Medications Medication Order MAR Action Action Date Dose Rate Site acetaminophen (OFIRMEV) injection Given 01/20/2017 1,000 mg Administer over 15 Minutes, 13:41 CDT INTRA-PROCEDURE MED, Starting So 01/20/17 at 1341, Until So 01/20/17 at 1434, Pain non-opioid: may be used alone or in combination with opioid analgesia, Anesthesia Intra-op ceFAZolin (ANCEF) injection Given 01/20/2017 2 g INTRA-PROCEDURE MED, Starting So 12:55 CDT 01/20/17 at 1255, Until So 01/20/17 at 1434, Anesthesia Intra-op dexamethasone (DECADRON) injection Given 01/20/2017 4 mg Intravenous, INTRA-PROCEDURE MED, 12:34 CDT Starting So 01/20/17 at 1234, Until So 01/20/17 at 1434, Nausea/Vomiting Injectable, Anesthesia Intra-op dextran 70/hypromellose (NATURAL BALANCE Given 01/20/2017 2 drops TEARS) 0.1/0.3 % ophthalmic solution 12:21 CDT INTRA-PROCEDURE MED, Starting So 01/20/17 at 1221, Until So 01/20/17 at 1434, Dry Eyes, Irritated Eyes, Anesthesia Intra-op ePHEDrine 50 mg/mL 50 mg in sodium Given - New 01/20/2017 10 mg chloride PF 0.9% 5 mL IV syringe Bag 12:43 CDT 5 mL, INTRA-PROCEDURE MED(CONT), Starting So 01/20/17 at 1243, Until Discontinued, Anesthesia Intra-op fentaNYL citrate PF (SUBLIMAZE) Given 01/20/2017 25 mcg injection 13:06 CDT INTRA-PROCEDURE MED, Starting So 01/20/17 at 1258, Until So 01/20/17 at 1434, Pain Injectable, Anesthesia Intra-op Given 01/20/2017 25 mcg 13:09 CDT Given 01/20/2017 25 mcg 14:25 CDT ketamine (KETALAR) injection Given 01/20/2017 20 mg INTRA-PROCEDURE MED, Starting So 12:31 CDT 01/20/17 at 1231, Until So 01/20/17 at 1434, Anesthesia Intra-op ketorolac (TORADOL) injection Given 01/20/2017 30 mg INTRA-PROCEDURE MED, Starting So 14:01 CDT 01/20/17 at 1401, Until So 01/20/17 at 1434, Pain non-opioid: may be used alone or in combination with opioid analgesia, Anesthesia Intra-op lactated ringers infusion Given - New 01/20/2017 1,000 mL 20 mL/hr 1,000 mL, 1,000 mL, Intravenous, at 20 Bag 11:38 CDT mL/hr, CONTINUOUS, Starting So 01/20/17 at 1115, Until So 01/20/17 at 1838, Pre-Op Given - New Bag 01/20/2017 13:59 CDT lidocaine (PF) injection Given 01/20/2017 80 mg INTRA-PROCEDURE MED, Starting So 12:18 CDT 01/20/17 at 1218, Until So 01/20/17 at 1434, Anesthesia Intra-op midazolam (VERSED) injection Given 01/20/2017 2 mg Intravenous, INTRA-PROCEDURE MED, 12:11 CDT Starting So 01/20/17 at 1211, Until So 01/20/17 at 1434, Agitation Injectable, Anxiety Injectable, Anesthesia Intra-op ondansetron (ZOFRAN) injection Given 01/20/2017 4 mg Intravenous, INTRA-PROCEDURE MED, 13:50 CDT Starting So 01/20/17 at 1350, Until So 01/20/17 at 1434, Nausea/Vomiting Injectable, Anesthesia Intra-op phenylephrine (PHAM-SYNEPHRINE) 10 mg in Bolus 01/20/2017 100 mcg sodium chloride 0.9% (NS) 250 mL IV drip 13:49 CDT (std conc) 10 mg 250 mL, INTRA-PROCEDURE MED(CONT), Starting So 01/20/17 at 1348, Until So 01/20/17 at 1434, Anesthesia Intra-op Dose/Rate Change 01/20/2017 0.4 44.7 mL/hr 13:55 CDT mcg/kg/min Dose/Rate Change 01/20/2017 0.5 55.9 mL/hr 14:11 CDT mcg/kg/min phenylephrine in NS Injection Given 01/20/2017 50 mcg Intravenous, INTRA-PROCEDURE MED, 13:19 CDT Starting So 01/20/17 at 1233, Until So 01/20/17 at 1434, Symptomatic Hypotension, Anesthesia Intra-op Given 01/20/2017 50 mcg 13:31 CDT Given 01/20/2017 100 mcg 13:39 CDT propofol (DIPRIVAN) injection Given 01/20/2017 140 mg INTRA-PROCEDURE MED, Starting So 12:18 CDT 01/20/17 at 1218, Until So 01/20/17 at 1434, Anesthesia Intra-op Given 01/20/2017 30 mg 12:20 CDT in this encounter
--- OUTSIDE RECORDS SUMMARY | 2017-01-27 16:43 | XMS REPORT | Encounter Summary ---
Author Author [facility] Organization [facility] Address Unknown Phone Unavailable Care Team Providers Care Public Works Manager Name Role Phone PCP Unavailable Encounter Details Date Type Department Care Team Description 12/16/2016 Prep for Case [facility] Kennedy Cherry MD Physicians - Orthopedics [address] [facility] [address] FLO[address] [place] [address] ORTHOPEDICS [facility] [phone] [place] [address] Social History Tobacco Use Types Packs/Day Years Used Date Never Smoker Smokeless Tobacco: Never Used Sex Assigned at Date Recorded Not on file as of this encounter Plan of Treatment Not on fileas of this encounter Visit Diagnoses Not on filein this encounter
[2017-01-27 16:49] VITALS: BP 180/89
[2017-01-27] MEDS ORDERED: CATHETER FLUSH 10 ML SYR IV PRN (17:00)
[2017-01-27 17:23] LABS: BASOPHILS % (AUTO) 0 % (0-10); EOSINOPHILS # (AUTO) 0.1 10^3/uL (0.0-0.3); EOSINOPHILS % (AUTO) 1 % (0-10); LYMPHOCYTES # (AUTO) 2.3 X 10^3 (1.0-4.0); LYMPHOCYTES % (AUTO) 31 % (12-44); MEAN CORPUSCULAR HEMOGLOBIN 29 PG (25-34); MEAN CORPUSCULAR HGB CONC 35 G/DL (32-36); MEAN CORPUSCULAR VOLUME 83 FL (80-99); MEAN PLATELET VOLUME 10.7 FL (7.4-10.4); MONOCYTES # (AUTO) 0.6 X 10^3 (0.0-1.0); MONOCYTES % (AUTO) 8 % (0-12); NEUTROPHILS # (AUTO) 4.3 X 10^3 (1.8-7.8); NEUTROPHILS % (AUTO) 59 % (42-75); PLATELET COUNT 277 10^3/uL (130-400); RED BLOOD COUNT 4.96 10^6/uL (4.35-5.85); RED CELL DISTRIBUTION WIDTH 12.4 % (10.0-14.5); WHITE BLOOD COUNT 7.3 10^3/uL (4.3-11.0)
[2017-01-27 17:44] LABS: ALANINE AMINOTRANSFERASE 37 U/L (0-55); ALBUMIN 4.5 GM/DL (3.2-4.5); ANION GAP 11 MMOL/L (5-14); ASPARTATE AMINO TRANSFERASE 34 U/L (5-34); BILIRUBIN,TOTAL 0.5 MG/DL (0.1-1.0); BLOOD UREA NITROGEN 19 MG/DL (7-18); BUN/CREATININE RATIO 22; CARBON DIOXIDE 21 MMOL/L (21-32); CHLORIDE 107 MMOL/L (98-107); CREATININE SERUM 0.87 MG/DL (0.60-1.30); GFR ESTIMATED > 60; GLUCOSE 114 MG/DL (70-105); POTASSIUM 3.8 MMOL/L (3.6-5.0); SODIUM 139 MMOL/L (135-145); TOTAL PROTEIN 8.1 GM/DL (6.4-8.2)
[2017-01-27] MEDS: NS IV 1000 ML 1,000 ML IV SCH (17:48)
[2017-01-27] MEDS ORDERED: NS 100 ML (IVPB) BAG IV ONE (18:00)
[2017-01-27] MEDS ORDERED: IOHEXOL 350 MG/ML 150 ML (OMNIPAQUE 350) VIAL IV ONE (18:00)
[2017-01-27] MEDS ORDERED: INFLUENZA TRIvalent 2017-2018 0.5 ML/45 MCG SYR IM ONE (18:00)
--- NOTE | 2017-01-27 18:58 | Diagnostic Imaging Report ---
PROCEDURE: CT angiography of the chest with and without contrast. TECHNIQUE: Noncontrast CT of the chest was performed. Subsequently, after intravenous administration of contrast, thin section axial CT angiography of the chest was performed. MIP reconstructions were made. INDICATION: Bradycardia, dyspnea, cough. FINDINGS: The previous CT chest exam of 05/13/2016 failed to show any sign of an acute cardiopulmonary abnormality. On this study, there is no defect within the pulmonary arteries to indicate a pulmonary embolus. There is no sign of a dissection. The aorta is not abnormally dilated and similar in size to the prior study. The heart size also remains within normal limits. The lungs are generally clear and well aerated. There is no sign of failure, pneumonia, or pleural effusion. There is no parenchymal lung mass identified either. There is no mediastinal or hilar adenopathy. The thyroid gland was not visualized in its entirety. Where visualized, the thyroid gland is unremarkable. There is no obvious breast mass. According to our records, the patient has not had a mammogram. Unless the patient has had a recent (within the last year) mammogram elsewhere, then mammography would be recommended for further study. The sections through the upper abdomen fail to show any sign of an acute abnormality. The bone windows show no evidence for a fracture or for a destructive lesion. IMPRESSION: 1. There is no evidence for an acute cardiopulmonary abnormality. In particular, there is no sign of a dissection or of a pulmonary embolus. 2. There is no obvious breast mass. Recommendations as above. Dictated by: Dictated on workstation # [id number]
--- NOTE | 2017-01-27 19:52 | History & Physicial ---
History of Present Illness History of Present Illness Reason for visit/HPI PT IS A 56 Y/O FEMALE WHO IS KNOWN TO ME FROM CLINIC. SHE RECENTLY HAD SURGERY ON HER LEFT WRIST - SHE HAD QUITE A BIT OF TROUBLE AFTER ANESTHESIA COMING OUT FROM UNDER THE ANESTHETIC. SHE REPORTEDLY WAS BACK IN THE POST-OP FOR OVER 4 HOURS. SHE REPORTS THAT SHE WAS IN QUITE A BIT OF PAIN ON THE RIDE DOWN FROM , SHE TOOK A FEW PRESCRIBED OXYCODONE AND SHE WAS STARTING TO FEELING INCREASINGLY RESTLESS AND UNCOMFORTABLE. SHE HAS A COUGH THAT HAS BEEN PRESENT FOR ABOUT 6 MONTHS - THE COUGH WAS WORSENED AFTER HER SURGERY AND SHE STARTED TO HAVE INCREASED TROUBLE EATING AND DRINKING. Date of Admission Jan 27, 2017 at 16:37 Date Seen by Provider: Jan 27, 2017 Time Seen by Provider: 20:00 Attending Physician Davi Taveras MD Admitting Physician Davi Taveras MD Consult Allergies and Home Medications Allergies Coded Allergies: NKANo Known Allergies (Verified Allergy, Unknown, 01/27/17) Home Medications Benzonatate 100 Mg Capsule, 100-200 MG PO Q8H PRN for COUGH, (Reported) Docusate Sodium 100 Mg Capsule, 100 MG PO DAILY PRN for CONSTIPATION-1ST LINE, ( Reported) Doxycycline Hyclate 100 Mg Tablet, 100 MG PO BID for 14 Days, (Reported) 14 DAY SUPPLY FILLED 01-27-17 (NOT YET PICKED UP) Lorazepam 0.5 Mg Tablet, 0.5 MG PO HS, (Reported) Nebivolol HCl 5 Mg Tablet, 5 MG PO DAILY, (Reported) Oseltamivir Phosphate 75 Mg Capsule, 75 MG PO BID for 5 Days, (Reported) 5 DAY SUPPLY FILLED 01-24-17 Valsartan 80 Mg Tablet, 80 MG PO BID, (Reported) Past Rgwdlfk-Ybdxar-Pafody Hx Patient Social History Marrital Status: Living Status: LIVES AT HOME WITH Employed/Student: employed Alcohol Use: Rarely Uses Recreational Drug Use: No Smoking Status: Never a Smoker 2nd Hand Smoke Exposure: No Physical Abuse Screen: No Sexual Abuse: No Recent Foreign Travel: No Contact w/other who traveled: No 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) Recent Infectious Disease Expo: No Seasonal Allergies Seasonal Allergies: No Surgeries Yes (EYE, CHEST WALL, APPY, REPAIR OF NERVE DAMAGE LEFT F/A LAST WEEK AT ) Respiratory No Cardiovascular Yes Hypertension Neurological No Reproductive System : No Hx Reproductive Disorders: No Sexually Transmitted Disease: No HIV/AIDS: No Female Reproductive Disorders: Denies Genitourinary No Gastrointestinal No Musculoskeletal No Endocrine History of Endocrine Disorders: No Are Your Blood Sugars Over 250: No HEENT History of HEENT Disorders: No Cancer No Psychosocial History of Psychiatric Problem: Yes Behavioral Health Disorders: Sleep Difficulties Integumentary History of Skin or Integumenta: No Blood Transfusions History of Blood Disorders: No Reviewed Nursing Assessment Reviewed/Agree w Nursing PMH: Yes Family Medical History Significant Family History: Heart Disease, Hypertension Family Hx: Constitutional: No chills, No fever, malaise, weakness EENTM: hoarseness, No mouth pain, No throat pain, No throat swelling Respiratory: cough, dyspnea on exertion, short of breath Cardiovascular: No chest pain, No palpitations Gastrointestinal: No abdominal pain, dysphagia (PHARYNGEAL), No loss of appetite, No nausea, vomiting Genitourinary: no symptoms reported : No Musculoskeletal: joint pain (LEFT WRIST), muscle stiffness, muscle twitching ( LOWER LEGS), muscle weakness Skin: no symptoms reported Psychiatric/Neurological: Denies Anxiety, Denies Depressed All Other Systems Reviewed Negative Unless Noted: Yes Physical Exam Vital Signs Vital Sign - Last 12Hours 01/27/17 16:49 Temp 98.1 Pulse 48 Resp 26 B/P (MAP) 180/89 Pulse Ox 100 O2 Delivery Room Air Capillary Refill : Less Than 3 Seconds General Appearance: WD/WN, Mild Distress Eyes: Bilateral Eye Normal Inspection, Bilateral Eye PERRL, Bilateral Eye EOMI HEENT: PERRL/EOMI, Pharynx Normal Neck: Full Range of Motion, Non Tender, Supple Respiratory: Chest Non Tender, Lungs Clear, Normal Breath Sounds, No Accessory Muscle Use Cardiovascular: Regular Rate, Rhythm, Normal Peripheral Pulses Gastrointestinal: Normal Bowel Sounds, No Organomegaly, Non Tender, Soft Rectal: Deferred Extremity: Normal Capillary Refill, No Pedal Edema, Other (TTP OVER LOWER LEGS FROM KNEES TO FEET BILATERALLY, LEFT ARM IN SURGICAL SPLINT) Neurologic/Psychiatric: Alert, Oriented x3, fine hairer II-XII Norm as Tested, No Aphasia, No Facial Droop, No Motor Weakness, Other (FLAT AFFECT) Skin: Normal Color, Warm/Dry Lymphatic: No Adenopathy Assessment/Plan Assessment and Plan DYSPNEA TACHYPNEA HYPERTENSION NEAR SYNCOPE LEG PAIN COUGH DYSPHAGIA DYSPNEA WITH TACHYPNEA - CHECK CT ANGIO OF CHEST, D-DIMER, MONITOR CONTINUOUS PULSE OXIMETRY. HYPERTENSION - START PRN CLONIDINE. NEAR SYNCOPE - MONITOR SYMPTOMS, EKG NEGATIVE LEG PAIN - TORADOL INJECTION TODAY. COUGH WITH DYSPHAGIA - DISCUSSED WITH DR. SPICER - HE WILL PERFORM EGD TOMORROW MORNING. START ON CARAFATE AND PROTONIX. DVT PROPHYLAXIS WITH AMBULATION - PT HAS RESTLESSNESS AND PAIN OF LEGS AND DOES NOT WANT SCD'S Problems: Admission Diagnosis DYSPNEA TACHYPNEA HYPERTENSION NEAR SYNCOPE LEG PAIN COUGH DYSPHAGIA Clinical Quality Measures DVT/VTE Risk/Contraindication: Risk Factor Score Per Nursin RFS Level Per Nursing on Admit: 2=Moderate DAVI TAVERAS MD Jan 27, 2017 19:52
[2017-01-27 19:59] VITALS: BP 134/81
[2017-01-27] MEDS ORDERED: cloNIDine 0.1 MG (CATAPRES) TAB PO NR (20:00)
[2017-01-27] MEDS: KETOROLAC 15 MG/ML VIAL IV PRN (20:35)
[2017-01-27] MEDS ORDERED: BENZTROPINE MESYLATE 1 MG (COGENTIN) TAB PO ONE (21:00)
[2017-01-27] MEDS ORDERED: LORazepam 1 MG (ATIVAN) TAB PO ONE (21:00)
[2017-01-27] MEDS: SUCRALFATE 1 GM (CARAFATE) TAB PO SCH (21:37)
[2017-01-27] MEDS: PANTOPRAZOLE 40 MG/10 ML (PROTONIX) VIAL IV SCH (21:37)
[2017-01-27] MEDS: DICLOFENAC 1% GEL 100 GM (VOLTAREN) TUBE TOP SCH (21:41)
[2017-01-28] VITALS (7 sets, daily range): BP systolic 118–138; BP diastolic 69–85
[2017-01-28] MEDS: NS IV 1000 ML 1,000 ML IV SCH ×3 (03:32→15:34)
[2017-01-28] MEDS: KETOROLAC 15 MG/ML VIAL IV PRN (06:13)
[2017-01-28] MEDS: SUCRALFATE 1 GM (CARAFATE) TAB PO SCH ×4 (06:13→21:26)
[2017-01-28] MEDS: cloNIDine 0.1 MG (CATAPRES) TAB PO SCH ×2 (08:44→21:26)
[2017-01-28] MEDS: PANTOPRAZOLE 40 MG/10 ML (PROTONIX) VIAL IV SCH ×2 (08:45→21:24)
[2017-01-28] MEDS: DICLOFENAC 1% GEL 100 GM (VOLTAREN) TUBE TOP SCH ×4 (08:45→21:27)
--- NOTE | 2017-01-28 09:12 | Conscious Sedation/ASA ---
Conscious Sedation Pre-Proced Time Reviewed: 09:11 ASA Class: 2 Airway Mallampati Classification: (big sandy appropriate class) I. II. III, IV Lungs Heart ASA score ASA 1: a normal healthy patient ASA 2: a patient with a mild systemic disease (mid diabetes, controlled hypertension, obesity ASA 3: a patient with a severe systemic disease that limits activity (angina , COPD, prior Myocardial infarction) ASA 4: a patient with an incapacitating disease that is a constant threat to life (CHF, renal failure) ASA 5: a moribund patient not expected to survive 24 hrs. (ruptured aneurysm) ASA 6: a declared brain patient whose organs are being harvested. For emergent operations, add the letter E after the classification Grade 2 Sedation Plan: Discussed options with patient/fam Note The patient is an appropriate candidate to undergo the planned procedure, sedation, and anesthesia. The patient immediately re-assessed prior to indication. MARIO SPICER MD Jan 28, 2017 9:12 am
[2017-01-28] MEDS ORDERED: DOXY100T2 PO (10:15)
[2017-01-28] MEDS ORDERED: NEBI5TAB8 PO (10:15)
[2017-01-28] MEDS ORDERED: SALIVA STIMULANT MOUTH SPRAY (BIOTENE) 1.5 OZ MM PRN (10:15)
[2017-01-28] MEDS ORDERED: VALS80TA30 PO (10:15)
[2017-01-28] MEDS ORDERED: OSEL75CA15 PO (10:20)
[2017-01-28] MEDS ORDERED: LORA0.5T PO (10:20)
[2017-01-28] MEDS ORDERED: BENZ100C23 PO (10:20)
[2017-01-28] MEDS ORDERED: DOCU-143 PO (10:22)
[2017-01-28] MEDS ORDERED: NS IV 500 ML 500 ML ONE (12:21)
[2017-01-28] MEDS ORDERED: MIDAZOLAM 2 MG/2 ML (VERSED) VIAL ONE ×3 (12:21→12:22)
[2017-01-28] MEDS ORDERED: fentaNYL INJECTION 100 MCG/2 ML AMP ONE (12:22)
[2017-01-28] MEDS ORDERED: HURRICAINE EXT TUBE (BENZOCAINE) ONE (12:22)
[2017-01-28] MEDS: NS IV 500 ML 500 ML IV SCH (12:30)
[2017-01-28] MEDS: fentaNYL INJECTION 100 MCG/2 ML AMP IVP PRN ×2 (12:33→12:39)
[2017-01-28] MEDS: MIDAZOLAM 10 MG/2 ML (VERSED) VIAL IVP PRN ×2 (12:35→12:40)
--- NOTE | 2017-01-28 12:49 | Progress Note-Standard ---
Standard Progress Note Progress Notes/Assess & Plan Date Seen by Provider: Jan 28, 2017 Time Seen by Provider: 11:55 Progress/Assessment & Plan lady admitted with dysphagia and cough. Upper endoscopy discussed, possibility of esophageal dilatation reviewed as well. Willing to proceed Final Diagnosis dysphagia. Cough MARIO SPICER MD Jan 28, 2017 12:49 pm
--- NOTE | 2017-01-28 12:52 | Endo Procedure Record ---
Endo Procedure Report Date of Procedure Jan 28, 2017 Surgeon (s) MARIO SPICER MD Post Procedure/Op Diagnosis distal esophageal stricture. Distal gastritis Procedure Performed EGD with antral biopsy Balloon dilatation of esophageal stricture Description of Procedure Anesthesia Type: Conscious Sedation Specimen(s) collected/removed antral mucosa for H. pylori Description of the Procedure Indication for procedure: This lady has been admitted with dysphagia, inability to eat and unexplained cough of several weeks duration. As part of the ongoing evaluation, an upper endoscopy was felt to be reasonable. Informed consent was obtained after reviewing the procedure in detail. Description of procedure: She was placed in left lateral decubitus position and her vital signs were monitored. Conscious sedation was achieved using Versed and fentanyl. The flexible gastroscope was introduced down the esophagus, past the stomach, into the proximal duodenum. Findings: Esophagus: A short hiatal hernia with a small stricture. It was dilated to 20 mm with a balloon. Stomach: Very minimal distal gastritis. Antral biopsy for H. pylori was obtained. Duodenum: normal She tolerated the procedure well and was taken back to the nursing area in a stable condition. Ongoing difficulty with swallowing and cough. Esophageal stricture dilated. H. pylori pending. Copies To: DAVI PRESSLEY MD, XAVIER M MD Jan 28, 2017 12:52 pm
--- NOTE | 2017-01-28 12:59 | Progress Note (SOAP) ---
Subjective Date Seen by Provider: Jan 28, 2017 Time Seen by Provider: 09:55 Subjective/Events-last exam PT REPORTS THAT SHE IS FEELING BETTER, SHE FEELS LIKE HER LEGS ARE NOT PAINFUL. SHE REPORTS A DECREASED SENSATION OF RESTLESSNESS COMPARED TO ADMISSION. SHE STATES THAT SHE STILL HAS DYSPHAGIA AND COUGHING. Review of Systems General: No Chills, Fatigue HEENT: No Head Aches Pulmonary: No Dyspnea, No Cough Cardiovascular: No: Chest Pain, Palpitations Gastrointestinal: Vomiting, No: Nausea Genitourinary: No Dysuria Musculoskeletal: arm pain (LEFT WRIST) Neurological: Weakness, No: Confusion Objective Exam Vital Signs Date Time Temp Pulse Resp B/P (MAP) Pulse Ox O2 Delivery O2 Flow Rate FiO2 01/28/17 08:45 98 Room Air 01/28/17 08:38 98.4 50 18 138/69 98 Room Air 01/28/17 04:11 97.7 74 16 126/81 97 Room Air 01/28/17 02:31 95 Room Air 01/28/17 00:39 97.3 53 18 118/71 96 Room Air 01/27/17 22:20 99 Room Air 01/27/17 19:59 98.6 56 20 134/81 98 Room Air 01/27/17 19:00 98 Room Air 01/27/17 18:30 100 Room Air 01/27/17 16:49 98.1 48 26 180/89 100 Room Air Capillary Refill : Less Than 3 Seconds General Appearance: No Apparent Distress, WD/WN Neck: Full Range of Motion, Supple Respiratory: Chest Non Tender, Lungs Clear, Normal Breath Sounds Cardiovascular: Regular Rate, Rhythm, No Edema Gastrointestinal: normal bowel sounds, non tender, soft Extremity: Normal Range of Motion, No Pedal Edema, Other (TENDERNESS NOW ONLY AT ANKLES BILATERALLY) Neurologic/Psychiatric: Alert, Oriented x3, No Motor/Sensory Deficits, Normal Mood/Affect Skin: Warm/Dry Lymphatic: No Adenopathy Results Lab Laboratory Tests 01/27/17 17:15: White Blood Count 7.3, Red Blood Count 4.96, Hemoglobin 14.3, Hematocrit 41, Mean Corpuscular Volume 83, Mean Corpuscular Hemoglobin 29, Mean Corpuscular Hemoglobin Concent 35, Red Cell Distribution Width 12.4, Platelet Count 277, Mean Platelet Volume 10.7H, Neutrophils (%) (Auto) 59, Lymphocytes (%) (Auto) 31 , Monocytes (%) (Auto) 8, Eosinophils (%) (Auto) 1, Basophils (%) (Auto) 0, Neutrophils # (Auto) 4.3, Lymphocytes # (Auto) 2.3, Monocytes # (Auto) 0.6, Eosinophils # (Auto) 0.1, Basophils # (Auto) 0.0, D-Dimer < 0.27, Sodium Level 139, Potassium Level 3.8, Chloride Level 107, Carbon Dioxide Level 21, Anion Gap 11, Blood Urea Nitrogen 19H, Creatinine 0.87, Estimat Glomerular Filtration Rate > 60, BUN/Creatinine Ratio 22, Glucose Level 114H, Calcium Level 10.0, Magnesium Level 1.9, Total Bilirubin 0.5, Aspartate Amino Transf (AST/SGOT) 34, Alanine Aminotransferase (ALT/SGPT) 37, Alkaline Phosphatase 140H, Total Protein 8.1, Albumin 4.5 Assessment/Plan Assessment/Plan Assess & Plan/Chief Complaint DYSPNEA TACHYPNEA HYPERTENSION NEAR SYNCOPE LEG PAIN COUGH DYSPHAGIA DYSPNEA WITH TACHYPNEA - CHECK CT ANGIO OF CHEST, D-DIMER, MONITOR CONTINUOUS PULSE OXIMETRY. - CT ANGIO - NEGATIVE, D DIMER NEGATIVE. HYPERTENSION - STARTED PRN CLONIDINE. BRADYCARDIA - STABLE NEAR SYNCOPE - MONITOR SYMPTOMS, EKG NEGATIVE LEG PAIN - TORADOL INJECTION PRN - THIS HELPED HER SYMPTOMS. ANXIETY - IMPROVED AFTER USE OF ATIVAN COUGH WITH DYSPHAGIA - DISCUSSED WITH DR. SPICER - HE DID EGD TODAY -THERE WAS A SLIGHT STRICTURE - BALLOONED OPEN - CONTINUE WITH CARAFATE AND PROTONIX - DVT PROPHYLAXIS WITH AMBULATION - PT HAS RESTLESSNESS AND PAIN OF LEGS AND DOES NOT WANT SCD'S Clinical Quality Measures DVT/VTE Risk/Contraindication: Risk Factor Score Per Nursin RFS Level Per Nursing on Admit: 2=Moderate DAVI PRESSLEY MD Jan 28, 2017 12:59
[2017-01-28] MEDS ORDERED: HURRICAINE EXT TUBE (BENZOCAINE) XX ONE (13:00)
[2017-01-28] MEDS: LORazepam 0.5 MG (ATIVAN) TABLET PO SCH ×2 (13:16→21:26)
[2017-01-28] MEDS ORDERED: BENZONATATE 100 MG (TESSALON) CAPSULE PO PRN (14:00)
[2017-01-29] VITALS: BP 124/74
[2017-01-29 04:00] VITALS: BP 114/73
[2017-01-29] MEDS: NS IV 500 ML 500 ML IV SCH (04:30)
[2017-01-29] MEDS: NS IV 1000 ML 1,000 ML IV SCH (04:31)
[2017-01-29] MEDS: SUCRALFATE 1 GM (CARAFATE) TAB PO SCH (06:27)
[2017-01-29 08:00] VITALS: BP 113/56
[2017-01-29] MEDS: PANTOPRAZOLE 40 MG/10 ML (PROTONIX) VIAL IV SCH (08:58)
[2017-01-29] MEDS: LORazepam 0.5 MG (ATIVAN) TABLET PO SCH (08:58)
[2017-01-29] MEDS: DICLOFENAC 1% GEL 100 GM (VOLTAREN) TUBE TOP SCH (08:59)
[2017-01-29] MEDS: cloNIDine 0.1 MG (CATAPRES) TAB PO SCH (08:59)
[2017-01-29] MEDS ORDERED: SUCR1TAB PO (10:39)
[2017-01-29] MEDS ORDERED: CLON0.1T PO (10:39)
[2017-01-29] MEDS ORDERED: ESOM40CA52 PO (10:39)
--- NOTE | 2017-01-29 10:46 | Discharge Summary-Hospitalist ---
Diagnosis/Chief Complaint Date of Admission Jan 27, 2017 at 16:37 Date of Discharge January 29, 2017 Discharge Date: Jan 29, 2017 Discharge Time: 12:00 Discharge Diagnosis 1. esophageal stricture 2. Cough secondary to number 1 and reflux 3. Shortness of air secondary to 1 and 2 4. Restless leg syndrome 5. hypertension that is been labile improved on clonidine Discharge Summary Procedures EGD CT chest pulmonary angiogram Consultations Dr. Talbot Discharge Physical Examination Allergies: Coded Allergies: NKANo Known Allergies (Verified Allergy, Unknown, 01/27/17) Vitals & I&Os Vital Signs Date Time Temp Pulse Resp B/P (MAP) Pulse Ox O2 Delivery O2 Flow Rate FiO2 01/29/17 08:10 96 Room Air 01/29/17 08:00 98.0 61 20 113/56 General Appearance: Alert, Oriented X3, Cooperative HEENT: Atraumatic Respiratory: Clear to Auscultation Cardiovascular: Regular Rate, Normal S1, Normal S2 Abdominal: Normal Bowel Sounds, Soft Extremities: No Clubbing, Other (left arm wrapped) Neuro: Normal Gait, Normal Speech Psych/Mental Status: Mental Status NL Hospital Course patient was admitted with increased shortness of air and cough. She had had recent surgery on her left wrist. She was admitted for further evaluation. CT chest pulmonary angiogram was unremarkable. Because of the chronic coughing and dyspnea she was seen in consultation by Dr. Talbot. He performed an upper endoscopy and found a hiatal hernia with a small stricture. he performed a dilation. This morning she is feeling somewhat better and feels like her cough is better. She is anxious to go home. her Bystolic and valsartan were held and she was placed on clonidine with vast improvement in her blood pressure. it was discussed with her that if her cough and shortness of air is not improved after the esophageal dilation, further studies could be done with a swallowing study and consideration of an MRI to evaluate the base of the brain Discharge Home Medications: Active Scripts Active Esomeprazole Magnesium 40 Mg Capsule.dr 40 Mg PO BID 14 Days Sucralfate 1 Gm Tablet 1 Gm PO ACHS 14 Days Clonidine HCl 0.1 Mg Tablet 0.1 Mg PO BID 30 Days Reported Colace (Docusate Sodium) 100 Mg Capsule 100 Mg PO DAILY PRN Benzonatate 100 Mg Capsule 100-200 Mg PO Q8H PRN Oseltamivir Phosphate 75 Mg Capsule 75 Mg PO BID 5 Days 5 DAY SUPPLY FILLED 01-24-17 Lorazepam 0.5 Mg Tablet 0.5 Mg PO HS Valsartan 80 Mg Tablet 80 Mg PO BID Bystolic (Nebivolol HCl) 5 Mg Tablet 5 Mg PO DAILY Doxycycline Hyclate 100 Mg Tablet 100 Mg PO BID 14 Days 14 DAY SUPPLY FILLED 01-27-17 (NOT YET PICKED UP) Condition at discharge improved Instructions to patient/family Please see electronic discharge instructions given to patient. Clinical Quality Measures DVT/VTE Risk/Contraindication: VTE Addressed: Yes VTE Present on Admission: No Risk Factor Score Per Nursin RFS Level Per Nursing on Admit: 2=Moderate Copy Copies To 1: DAVI PRESSLEY MD, KATHLEEN M MD Jan 29, 2017 10:46
== END 2017-01-29 11:10 | disposition home or self-care (01) | DRG 392 ==
LOC: 4TH 16:37
PROVIDERS: ADMIT Family Medicine; ATTEND Family Medicine
PROC: 0D758ZZ Dilation of Esophagus, Via Natural or Artificial Opening Endoscopic (ICD-10-PCS; 2017-01-28)
PROC: 0DB78ZX Excision of Stomach, Pylorus, Via Natural or Artificial Opening Endoscopic, Diagnostic (ICD-10-PCS; principal; 2017-01-28 11:30)
DX: K22.2 Esophageal obstruction (principal); K29.60 Other gastritis without bleeding; R05 Cough; R06.82 Tachypnea, not elsewhere classified; I10 Essential (primary) hypertension; R55 Syncope and collapse; R13.10 Dysphagia, unspecified; G25.81 Restless legs syndrome
CPT/HCPCS: 36415; 71275; 80053; 83735; 85025; 85379; 93005; 94760

== ENCOUNTER → 2017-04-22 | Outpatient (CLI) | payer BC ==
[~2017-04-22] MED LIST changes: +BENZ-36 PO; +CLON0.1T PO; +DOCU-143 PO; +DOXY100T2 PO; +ESOM40CA52 PO; +LORA0.5T PO; +NEBI5TAB8 PO; +OSEL75CA15 PO; +SUCR1TAB PO; +VALS80TA30 PO
== END ==
LOC: CARD 13:36
PROVIDERS: ATTEND Internal Medicine Interventional Cardiology
DX: I42.9 Cardiomyopathy, unspecified (principal); I10 Essential (primary) hypertension
CPT/HCPCS: 93306

== ENCOUNTER 2017-05-12 15:08 | Outpatient (RCR) | payer BC | END 2017-06-02 12:50 | disposition home or self-care (01) | PROVIDERS: ATTEND Orthopaedic Surgery | DX: Z47.89 Encounter for other orthopedic aftercare (principal) ==

== ENCOUNTER → 2017-05-26 | Outpatient (CLI) | payer BC ==
--- NOTE | 2017-05-26 11:26 | Diagnostic Imaging Report ---
Indication: Hypertension. Technique: Spectral and color flow Doppler imaging of the abdomen Comparison: No prior studies available for comparison. Findings: The right kidney measures 9.0 x 4.0 x 4.7 cm and the left kidney measures 10.1 x 4.7 x 3.9 cm. The cortical thickness and echogenicity is normal. No calculi or hydronephrosis is identified. Right and left renal artery velocities appear normal. The renal artery to aorta ratios are within normal limits. Waveforms are unremarkable. No definite tardus parvus waveform is seen. Impression: Unremarkable renal ultrasound with renal Doppler. No definite findings to suggest renal artery stenosis are identified. Dictated by: Dictated on workstation # [id number]
== END ==
LOC: RAD 07:51
PROVIDERS: ATTEND Internal Medicine Nephrology
DX: I12.9 Hypertensive chronic kidney disease with stage 1 through stage 4 chronic kidney disease, or unspecified chronic kidney disease (principal); N18.3 Chronic kidney disease, stage 3 (moderate)
CPT/HCPCS: 93975

== ENCOUNTER → 2017-12-07 | Outpatient (CLI) | payer BC ==
[~2017-12-07] MED LIST changes: -VALS80TA30 PO; +VALS80TA31 PO
== END ==
LOC: CARD 10:50
PROVIDERS: ATTEND Internal Medicine Interventional Cardiology
DX: I42.9 Cardiomyopathy, unspecified (principal); I10 Essential (primary) hypertension
CPT/HCPCS: 93306

== ENCOUNTER → 2018-03-03 | Outpatient (CLI) | payer BC ==
--- NOTE | 2018-03-03 13:09 | Diagnostic Imaging Report ---
PROCEDURE: US Thyroid. TECHNIQUE: Multiple real-time grayscale images were obtained of the thyroid in various projections. INDICATION: Thyroid nodule, followup. COMPARISON: Correlation is made with prior thyroid ultrasound from 02/28/2017. FINDINGS: The left lobe measures 1.3 x 4.7 x 1.2 cm and the right lobe measures 1.3 x 5.0 x 1.6 cm. The isthmus is 2 mm in thickness. Left lobe does contain a tiny 3 mm hypoechoic nodule in the midportion, similar to prior exam. Tiny nodule in the right lobe approximately 2-3 mm in size is also unchanged. No new thyroid mass is detected. No dominant thyroid mass is seen. IMPRESSION: Stable tiny bilateral thyroid nodules when compared with the examination one year earlier. Dictated by: Dictated on workstation # [id number]
== END ==
LOC: RAD 11:51
PROVIDERS: ATTEND Family Medicine
DX: E04.2 Nontoxic multinodular goiter (principal)
CPT/HCPCS: 76536

== ENCOUNTER 2019-03-14 05:41 | Outpatient (CLI) | payer BC ==
[~2019-03-14] VITALS: Ht 170 cm; Wt 72.7 kg
[2019-03-14] MEDS ORDERED: CARV12.53 PO (12:08)
[2019-03-14] MEDS ORDERED: VALS80TA31 PO (12:08)
[2019-03-14] MEDS ORDERED: ASCO500C17 PO (12:08)
[2019-03-15] MEDS ORDERED: METO10TA3 PO (08:10)
== END 2019-03-14 12:23 | disposition home or self-care (01) ==
LOC: PREOP 05:41
PROVIDERS: ATTEND Internal Medicine
DX: Z01.818 Encounter for other preprocedural examination (principal)

== ENCOUNTER 2019-03-15 06:52 | Day surgery (SDC) | payer BC ==
--- NOTE | 2019-03-13 19:36 | HISTORY AND PHYSICAL ---
DATE OF SERVICE: EGD History And Physical HISTORY OF PRESENT ILLNESS: The patient is a 58-year-old white female who reports roughly over the past 6 months she has been having intermittent problems with dysphagia. She denies any weight loss, melena or bright red blood per rectum. She had a particularly bad episode on the evening of 02/15/2019, where she woke up coughing and has had a sore throat since. There was a choking sensation and she did regurgitate some food with a bile type taste in the back of her throat per her report. She reports roughly 2 years ago, she had an EGD that required dilatation and for a while she was on proton pump inhibitor therapy, but then stopped the medication due to lack of heartburn type symptoms. Nexium 40 mg twice daily was initiated after her visit with Dr. Taveras on 02/16/2019, and she was referred for EGD evaluation. Since that time, she is still having intermittent regurgitation and has been eating smaller amounts, but still does not think that she has been losing weight. She has been having difficulty with pills, but has been able to keep solids down as long as she chews her food up well, taking smaller bites. She has some intermittent chest tightness with her swallowing, but denies any exercise-induced symptoms and continues to exercise at the [facility] on a regular basis. PAST MEDICAL HISTORY: Significant for hypertension with no known history of coronary artery disease. MEDICATIONS ON ADMISSION: Include carvedilol 12.5 mg b.i.d., Ventolin as needed for cough and wheezing, which she has reportedly been taking since 03/2016, Ativan 0.25 mg at bedtime p.r.n. insomnia, Flonase nasal spray 1 spray both sides b.i.d., 80 mg aspirin daily and valsartan 80 mg daily. FAMILY HISTORY: She is not aware of any family history for esophageal carcinoma or Gu's. Her father was diagnosed with colon cancer in his 60s. She is not aware of any other family history for GI tract malignancy. PAST SURGICAL HISTORY: She has had some tendon surgery involving her forearm and appendectomy in 2006. SOCIAL HISTORY: She is , 2 adult children. 1 to 4 drinks alcohol per week with no past smoking history. REVIEW OF SYSTEMS: CONSTITUTIONAL: She has had no problems with weight loss, night sweats, chills or fever. GASTROINTESTINAL: As noted in the HPI. PULMONARY: She has had some cough, but denies any current wheezing. CARDIOVASCULAR: She denies dyspnea on exertion or chest pain. She has had some intermittent chest tightness, not associated with activity and has had no palpitations or sensation of heart racing. PHYSICAL EXAMINATION: GENERAL: Reveals a white female who did a lot of throat clearing during the interview with intermittent dry cough. VITAL SIGNS: Blood pressure 130/80, weight 164.8 pounds. HEENT: Unremarkable. Oral cavity clear. No erythema noted. CHEST: Clear to auscultation. CV: Revealed regular rate and rhythm without murmur, S3 or S4. ABDOMEN: Soft, supple without mass or organomegaly. Mild epigastric and some bilateral lower quadrant discomfort to palpation was noted without rebound or guarding. Bowel sounds are positive. EXTREMITIES: Reveal no cyanosis, clubbing, or edema. ASSESSMENT AND PLAN: Dysphagia, suspicious for esophageal stricture likely due to erosive esophagitis, is most likely from the patient's description, with secondary aspiration. The patient was advised to stick to soft solids and she was set up for EGD with likely dilatation to follow on the 03/15/2019. In the meantime, she is to hold aspirin and continue Nexium 40 mg b.i.d. I thank you for the referral of this pleasant lady. Job ID: [id number] DocumentID: [id number] Dictated Date: 03/13/2019 11:23:18 Display Decorator Date: 03/13/2019 11:58:30 Dictated By: ALONZO GUEVARA MD [facility]
[2019-03-15] VITALS (12 sets, daily range): BP systolic 106–152; BP diastolic 55–75
[~2019-03-15] VITALS: Ht 170 cm; Wt 72.7 kg
[~2019-03-15 06:52] MED LIST changes: +ASCO500C17 PO; +CARV12.53 PO
[2019-03-15] MEDS ORDERED: D5 LR IV SOLUTION 1,000 ML IV STA (06:53)
[2019-03-15] MEDS ORDERED: LIDOCAINE JELLY 2% 6 ML SYRINGE MM PRN (07:00)
[2019-03-15] MEDS ORDERED: HURRICAINE EXT TUBE (BENZOCAINE) XX PRN (07:00)
[2019-03-15] MEDS ORDERED: D5 LR IV SOLUTION 1,000 ML IV ONE (07:08)
[2019-03-15] MEDS ORDERED: fentaNYL INJECTION 100 MCG/2 ML AMP ONE (07:26)
[2019-03-15] MEDS ORDERED: MIDAZOLAM 5 MG/5 ML (VERSED) VIAL ONE (07:26)
[2019-03-15] MEDS ORDERED: LIDOCAINE JELLY 2% 6 ML SYRINGE ONE (07:26)
[2019-03-15] MEDS ORDERED: HURRICAINE EXT TUBE (BENZOCAINE) ONE (07:26)
[2019-03-15] MEDS: fentaNYL INJECTION 100 MCG/2 ML AMP IVP ONE (07:40)
[2019-03-15] MEDS: MIDAZOLAM 5 MG/5 ML (VERSED) VIAL IV PRN ×3 (07:41→07:47)
--- NOTE | 2019-03-15 08:04 | Pre-Op Note & Conscious Sedat ---
Pre-Operative Progress Note H&P Reviewed The H&P was reviewed, patient examined and no changes noted. Date H&P Reviewed: Mar 15, 2019 Time H&P Reviewed: 07:15 Conscious Sedation Pre-Proced ASA Score 1 For ASA 3 and 4: Consider anesthesia and medical clearance. Also, for patients with a history of failed moderate sedation consider anesthesia. Airway Lungs Heart ASA score ASA 1: a normal healthy patient ASA 2: a patient with a mild systemic disease (mid diabetes, controlled hypertension, obesity ASA 3: a patient with a severe systemic disease that limits activity (angina, COPD, prior Myocardial infarction) ASA 4: a patient with an incapacitating disease that is a constant threat to life (CHF, renal failure) ASA 5: a moribund patient not expected to survive 24 hrs. (ruptured aneurysm) ASA 6: a declared brain- patient whose organs are being harvested. For emergent operations, add the letter E after the classification Mallampati Classification Grade 2 Sedation Plan Analgesia, Amnesia, Plan communicated to team members, Discussed options with patient/fam, Discussed risks with patient/fam The patient is an appropriate candidate to undergo the planned procedure, sedation, and anesthesia. The patient immediately re-assessed prior to indication. ALONZO GUEVARA MD Mar 15, 2019 08:04 POS
[2019-03-15] MEDS ORDERED: METO10TA3 PO (08:10)
[2019-03-15 08:53] LABS: BASOPHILS % (AUTO) 0 % (0-10); EOSINOPHILS # (AUTO) 0.1 10^3/uL (0.0-0.3); EOSINOPHILS % (AUTO) 3 % (0-10); HEMATOCRIT 38 % (35-52); HEMOGLOBIN 12.7 G/DL (11.5-16.0); LYMPHOCYTES # (AUTO) 1.3 X 10^3 (1.0-4.0); LYMPHOCYTES % (AUTO) 35 % (12-44); MEAN CORPUSCULAR HEMOGLOBIN 29 PG (25-34); MEAN CORPUSCULAR HGB CONC 34 G/DL (32-36); MEAN CORPUSCULAR VOLUME 87 FL (80-99); MONOCYTES # (AUTO) 0.5 X 10^3 (0.0-1.0); MONOCYTES % (AUTO) 12 % (0-12); NEUTROPHILS # (AUTO) 1.9 X 10^3 (1.8-7.8); NEUTROPHILS % (AUTO) 50 % (42-75); PLATELET COUNT 176 10^3/uL (130-400); RED CELL DISTRIBUTION WIDTH 12.1 % (10.0-14.5); WHITE BLOOD COUNT 3.8 10^3/uL (4.3-11.0)
[2019-03-15] MEDS ORDERED: ONDANSETRON 4 MG (ZOFRAN) ORAL DISSOLVE TAB PO STA (09:03)
[2019-03-15 09:13] LABS: ALBUMIN 4.2 GM/DL (3.2-4.5); BILIRUBIN,TOTAL 0.3 MG/DL (0.1-1.0); CALCIUM 9.5 MG/DL (8.5-10.1); CREATININE SERUM 0.96 MG/DL (0.60-1.30); TOTAL PROTEIN 6.7 GM/DL (6.4-8.2)
--- NOTE | 2019-03-15 10:10 | Diagnostic Imaging Report ---
PROCEDURE: US Gallbladder. TECHNIQUE: Multiple real-time grayscale images were obtained over the right upper quadrant in various projections. INDICATION: Right upper quadrant abdominal pain. FINDINGS: No focal hepatic lesion is identified. Note is made of sludge within the lumen of the gallbladder. No shadowing calculus is identified and there is no evidence of gallbladder wall thickening or pericholecystic fluid. Pancreas is largely obscured by overlying bowel. No right renal, abdominal aortic, or inferior vena caval abnormality is identified. There is no evidence of free fluid. IMPRESSION: Gallbladder sludge without other evidence of acute abnormality. Dictated by: Dictated on workstation # [id number]
--- NOTE | 2019-03-15 20:02 | OPERATIVE REPORT ---
DATE OF SERVICE: EGD SUMMARY INDICATION FOR THE PROCEDURE: Dysphagia with nausea and vomiting. The patient was placed in the left lateral decubitus position. Prior to undergoing that, the endoscope was inserted in the oral cavity and under direct visualization, esophagus was intubated. Endoscope was passed down the esophagus through the stomach and second portion of the duodenum. Careful inspection was made as the endoscope was withdrawn. FINDINGS: The proximal esophagus revealed some whitish material a little more adherent than usual for Cetacaine. Brushing was obtained and submitted for evidence for yeast. There was no evidence for oral candidiasis, and the mid and distal esophagus revealed no abnormalities. There is no evidence for stricture formation. No evidence for erosive esophagitis and no evidence for extrinsic compression. The cardia of the stomach was unremarkable. I did not see evidence for hiatal hernia formation. There was some mild antral erythema. The fundus of the stomach was unremarkable. Biopsies were obtained and submitted for Helicobacter and histopathology. The pylorus, the pyloric channel, the duodenal bulb and second portion of duodenum were unremarkable with no evidence for dilatation or obstruction. ASSESSMENT: Questionable candidiasis confined to the proximal esophagus. We will only recommend treatment if brushing grows yeast. There is no evidence for obstruction or erosive esophagitis. Mild antral erythema is noted I suspect due to vomiting, but a biopsy was obtained and submitted for Helicobacter. Today's endoscopic findings do not explain this patient's symptoms. We did take the liberty of setting her up for an abdominal ultrasound to evaluate for cholecystitis. She had some nausea post-procedure that did require Zofran 4 mg melt tab as it occurred after IV was removed. We did call out metoclopramide 10 mg before meals and at bedtime, side effects were discussed in the interim. CBC, CMP and lipase level were obtained as well as the patient reports she has not had any recent blood testing. These levels are pending at the time of dictation and we will ensure that they are forwarded in addition to sonogram report. I thank you for the referral of this pleasant lady. Job ID: [id number] DocumentID: [id number] Dictated Date: 03/15/2019 17:21:33 Mold Dumper Date: 03/15/2019 20:00:50 Dictated By: ALONZO GUEVARA MD [facility]
== END 2019-03-15 09:20 | disposition home or self-care (01) ==
LOC: ENDO 06:52
PROVIDERS: ATTEND Internal Medicine
DX: K29.70 Gastritis, unspecified, without bleeding (principal); K31.89 Other diseases of stomach and duodenum; R13.10 Dysphagia, unspecified; R11.2 Nausea with vomiting, unspecified; I10 Essential (primary) hypertension; Z79.899 Other long term (current) drug therapy; Z79.82 Long term (current) use of aspirin; Z80.0 Family history of malignant neoplasm of digestive organs
CPT/HCPCS: 36415; 76705; 80053; 83690; 85025; 87101

== ENCOUNTER 2019-03-19 17:14 | Emergency (ER) | payer BC ==
[~2019-03-19] VITALS: Ht 170.2 cm; Wt 71.8 kg
[~2019-03-19 17:14] MED LIST changes: +METO10TA3 PO
[2019-03-19 17:43] LABS: BASOPHILS % (AUTO) 0 % (0-10); EOSINOPHILS # (AUTO) 0.2 10^3/uL (0.0-0.3); EOSINOPHILS % (AUTO) 4 % (0-10); HEMATOCRIT 41 % (35-52); HEMOGLOBIN 14.3 G/DL (11.5-16.0); LYMPHOCYTES # (AUTO) 2.4 X 10^3 (1.0-4.0); LYMPHOCYTES % (AUTO) 41 % (12-44); MEAN CORPUSCULAR HEMOGLOBIN 29 PG (25-34); MEAN CORPUSCULAR HGB CONC 35 G/DL (32-36); MEAN CORPUSCULAR VOLUME 84 FL (80-99); MEAN PLATELET VOLUME 11.1 FL (7.4-10.4); MONOCYTES # (AUTO) 0.6 X 10^3 (0.0-1.0); MONOCYTES % (AUTO) 11 % (0-12); NEUTROPHILS # (AUTO) 2.5 X 10^3 (1.8-7.8); NEUTROPHILS % (AUTO) 44 % (42-75); PLATELET COUNT 236 10^3/uL (130-400); RED CELL DISTRIBUTION WIDTH 12.1 % (10.0-14.5); WHITE BLOOD COUNT 5.7 10^3/uL (4.3-11.0)
[2019-03-19] MEDS ORDERED: NS IV 1000 ML 1,000 ML IV SCH (17:45)
[2019-03-19] MEDS ORDERED: fentaNYL INJECTION 100 MCG/2 ML AMP IVP ONE ×2 (17:45→18:45)
[2019-03-19] MEDS ORDERED: ONDANSETRON 4 MG/2 ML (SDV) Z0FRAN IVP ONE (17:45)
[2019-03-19 17:49] LABS: BILIRUBIN,URINE NEGATIVE (NEGATIVE); CLARITY,URINE CLEAR; COLOR,URINE YELLOW; GLUCOSE, URINE (UA) NEGATIVE (NEGATIVE); KETONES,URINE NEGATIVE (NEGATIVE); LEUKOCYTE ESTERASE ,URINE NEGATIVE (NEGATIVE); NITRITE,URINE NEGATIVE (NEGATIVE); PH,URINE 6.5 (5-9); PROTEIN,URINE NEGATIVE (NEGATIVE)
[2019-03-19 17:55] LABS: BACTERIA,URINE NEGATIVE /HPF; SQUAMOUS EPITHELIAL CELL,UR RARE /HPF
[2019-03-19 17:58] LABS: ALANINE AMINOTRANSFERASE 31 U/L (0-55); ALBUMIN 5.1 GM/DL (3.2-4.5); ALKALINE PHOSPHATASE 103 U/L (40-136); AMYLASE 39 U/L (25-125); BILIRUBIN,TOTAL 0.3 MG/DL (0.1-1.0); BUN/CREATININE RATIO 14; CALCIUM 10.4 MG/DL (8.5-10.1); CARBON DIOXIDE 23 MMOL/L (21-32); CHLORIDE 105 MMOL/L (98-107); CREATININE SERUM 0.88 MG/DL (0.60-1.30); GFR ESTIMATED > 60; GLUCOSE 91 MG/DL (70-105); LIPASE 19 U/L (8-78); POTASSIUM 3.7 MMOL/L (3.6-5.0); SODIUM 141 MMOL/L (135-145); TOTAL PROTEIN 8.7 GM/DL (6.4-8.2)
[2019-03-19] MEDS ORDERED: HYOSCYAMINE 0.125 MG (LEVSIN) TAB PO ONE (19:15)
[2019-03-19] MEDS ORDERED: PROMETHAZINE INJ 25 MG/ML (PHENERGAN) AMP IVP ONE (19:15)
--- NOTE | 2019-03-19 19:30 | ED Abdominal Pain ---
General Chief Complaint: Abdominal/GI Problems Stated Complaint: VOMITING, ABD PAIN Nursing Triage Note: Pt amb to triage with c/o epigastric discomfort, nausea, vomiting, and diarrhea. Pt reports to have woken this morning @ approx 0500 with "severe" pain. Pt reports she recieved phone call from Dr. Nolan on this day reporting that pt has yeast pockets in her esophagus (per EGD) and sludge around her gallbladder (per ultrasound). Dr. Nolan advised her to be seen in this ED. Sepsis Screen: No Definite Risk Source of Information: Patient Exam Limitations: No Limitations History of Present Illness Date Seen by Provider: Mar 19, 2019 Time Seen by Provider: 17:35 Initial Comments 58-year-old female who presents to the emergency room with complaints of nausea, vomiting, diarrhea that started this morning around 5 AM. She reports that the pain radiates to her left chest but it stays in her epigastric area. She has r ecently had an EGD and an ultrasound of her gallbladder that showed sludge and has an appointment to be seen by Dr. Starkey tomorrow morning at 10 AM. She denies fevers, shortness of breath, lightheadedness. Timing/Duration: 1 Day Severity/Quality: Cramping Location: Epigastric Radiation: Chest Associated Symptoms: Nausea/Vomiting Allergies and Home Medications Allergies Coded Allergies: hydrocodone (Verified Allergy, Mild, "FOGGY', 03/14/19) Home Medications Ascorbic Acid 500 Mg Capsule, 500 MG PO DAILY, (Reported) Carvedilol 12.5 Mg Tablet, 12.5 MG PO BID, (Reported) Esomeprazole Magnesium 40 Mg Capsule.dr, 40 MG PO BID Prescribed by: CESILIA COX on 01/29/17 1039 Lorazepam 0.5 Mg Tablet, 0.5 MG PO HS, (Reported) Metoclopramide HCl 10 Mg Tablet, 10 MG PO ACHS Prescribed by: ALONZO NOLAN on 03/15/19 0810 Valsartan 80 Mg Tablet, 80 MG PO HS, (Reported) Patient Home Medication List Home Medication List Reviewed: Yes Review of Systems Review of Systems Constitutional: see HPI; No chills, No fever Gastrointestinal: See HPI, Abdominal Pain, Diarrhea, Nausea, Vomiting All Other Systems Reviewed Negative Unless Noted: Yes Past Gcoemcg-Jygugf-Jumodg Hx Past Med/Social Hx: Reviewed Nursing Past Med/Soc Hx Patient Social History Alcohol Use: Denies Use Recreational Drug Use: No Smoking Status: Never a Smoker 2nd Hand Smoke Exposure: No Recent Foreign Travel: No Contact w/Someone Who Travel: No Recent Infectious Disease Expo: No Recent Hopitalizations: No Physical Abuse: No Sexual Abuse: No Mistreated: No Fear: No Immunizations Up To Date Tetanus Booster (TDap): Unknown PED Vaccines UTD: Yes Date of Influenza Vaccine: Jan 29, 2019 Seasonal Allergies Seasonal Allergies: Yes (ALLERGY SHOTS WEEKLY) Past Medical History Surgeries: Yes (EYE, CHEST WALL, REPAIR OF NERVE DAMAGE LEFT WRIST) Appendectomy Respiratory: No Currently Using CPAP: No Currently Using BIPAP: No Cardiac: Yes Hypertension Neurological: No Reproductive Disorders: No Female Reproductive Disorders: Denies Sexually Transmitted Disease: No HIV/AIDS: No Genitourinary: No Gastrointestinal: No (DYSPHAGIA) Gastroesophageal Reflux, Chronic Constipation, Irritable Bowel Musculoskeletal: No Endocrine: No HEENT: No Loss of Vision: Denies Hearing Impairment: Denies Cancer: No Psychosocial: Yes Sleep Difficulties Integumentary: No Blood Disorders: No Adverse Reaction/Blood Tranf: No (N/A) Family Medical History Reviewed Nursing Family Hx Heart Disease, Hypertension Physical Exam Vital Signs Vital Signs - First Documented 03/19/19 17:18 Temp 36.8 Pulse 63 Resp 20 B/P (MAP) 199/115 (143) Pulse Ox 98 O2 Delivery Room Air Capillary Refill : Less Than 3 Seconds Height/Weight/BMI Height: 5'7.00" Weight: 160lbs. 0.0oz. [id number]; 24.00 BMI Method: General Appearance: WD/WN, no apparent distress Respiratory: chest non-tender, lungs clear, normal breath sounds, no respiratory distress, no accessory muscle use Cardiovascular: normal peripheral pulses, regular rate, rhythm, no edema, no gallop, no JVD, no murmur Gastrointestinal: normal bowel sounds, soft, no organomegaly, no pulsatile mass, tenderness (epigastric) Extremities: normal capillary refill Neurologic/Psychiatric: alert, normal mood/affect, oriented x 3 Skin: normal color, warm/dry Progress/Results/Core Measures Results/Orders Lab Results Laboratory Tests Test 03/19/19 17:22 03/19/19 17:28 03/19/19 19:28 Range/Units Urine Color YELLOW Urine Clarity CLEAR Urine pH 6.5 5-9 Urine Specific [place] <=1.005 1.016-1.022 Urine Protein NEGATIVE NEGATIVE Urine Glucose (UA) NEGATIVE NEGATIVE Urine Ketones NEGATIVE NEGATIVE Urine Nitrite NEGATIVE NEGATIVE Urine Bilirubin NEGATIVE NEGATIVE Urine Urobilinogen 0.2 < = 1.0 MG/DL Urine Leukocyte Esterase NEGATIVE NEGATIVE Urine RBC (Auto) NEGATIVE NEGATIVE Urine RBC NONE /HPF Urine WBC NONE /HPF Urine Squamous Epithelial Cells RARE /HPF Urine Crystals NONE /LPF Urine Bacteria NEGATIVE /HPF Urine Casts NONE /LPF Urine Mucus NEGATIVE /LPF Urine Culture Indicated NO White Blood Count 5.7 4.3-11.0 10^3/uL Red Blood Count 4.90 4.35-5.85 10^6/uL Hemoglobin 14.3 11.5-16.0 G/DL Hematocrit 41 35-52 % Mean Corpuscular Volume 84 80-99 FL Mean Corpuscular Hemoglobin 29 25-34 PG Mean Corpuscular Hemoglobin Concent 35 32-36 G/DL Red Cell Distribution Width 12.1 10.0-14.5 % Platelet Count 236 130-400 10^3/uL Mean Platelet Volume 11.1 H 7.4-10.4 FL Neutrophils (%) (Auto) 44 42-75 % Lymphocytes (%) (Auto) 41 12-44 % Monocytes (%) (Auto) 11 0-12 % Eosinophils (%) (Auto) 4 0-10 % Basophils (%) (Auto) 0 0-10 % Neutrophils # (Auto) 2.5 1.8-7.8 X 10^3 Lymphocytes # (Auto) 2.4 1.0-4.0 X 10^3 Monocytes # (Auto) 0.6 0.0-1.0 X 10^3 Eosinophils # (Auto) 0.2 0.0-0.3 10^3/uL Basophils # (Auto) 0.0 0.0-0.1 10^3/uL Sodium Level 141 135-145 MMOL/L Potassium Level 3.7 3.6-5.0 MMOL/L Chloride Level 105 98-107 MMOL/L Carbon Dioxide Level 23 21-32 MMOL/L Anion Gap 13 5-14 MMOL/L Blood Urea Nitrogen 12 7-18 MG/DL Creatinine 0.88 0.60-1.30 MG/DL Estimat Glomerular Filtration Rate > 60 BUN/Creatinine Ratio 14 Glucose Level 91 70-105 MG/DL Calcium Level 10.4 H 8.5-10.1 MG/DL Corrected Calcium 8.5-10.1 MG/DL Total Bilirubin 0.3 0.1-1.0 MG/DL Aspartate Amino Transf (AST/SGOT) 31 5-34 U/L Alanine Aminotransferase (ALT/SGPT) 31 0-55 U/L Alkaline Phosphatase 103 40-136 U/L Troponin I < 0.028 < 0.028 <0.028 NG/ML Total Protein 8.7 H 6.4-8.2 GM/DL Albumin 5.1 H 3.2-4.5 GM/DL Amylase Level 39 25-125 U/L Lipase 19 8-78 U/L My Orders Orders - TRINO RODGERS Comprehensive Metabolic Panel (03/19/19 17:34) Lipase (03/19/19 17:34) Amylase (03/19/19 17:34) Ua Culture If Indicated (03/19/19 17:34) Ed Iv/Invasive Line Start (03/19/19 17:34) Cbc With Automated Diff (03/19/19 17:34) Fentanyl Injection (Sublimaze Injection (03/19/19 17:45) Ondansetron Injection (Zofran Injectio (03/19/19 17:45) Ns Iv 1000 Ml (Sodium Chloride 0.9%) (03/19/19 17:45) Troponin I (03/19/19 17:55) Ekg Tracing (03/19/19 17:55) Fentanyl Injection (Sublimaze Injection (03/19/19 18:45) Promethazine Injection (Phenergan Injec (03/19/19 19:15) Hyoscyamine Sl Tablet (Levsin Sl Tablet) (03/19/19 19:15) Troponin I (03/19/19 19:22) Rx-Tramadol Hcl (Rx-Ultram) (03/19/19 20:11) Rx-Hyoscyamine Tab (Rx-Levsin Sl) (03/19/19 20:11) Rx-Ondansetron Po (Rx-Zofran Po) (03/19/19 20:11) Medications Given in ED Current Medications Medications Dose Ordered Sig/Mert Route Start Time Stop Time Status Last Admin Dose Admin Fentanyl Citrate 50 mcg ONCE ONCE IVP 03/19/19 17:45 03/19/19 17:46 DC 03/19/19 17:50 50 MCG Fentanyl Citrate 50 mcg ONCE ONCE IVP 03/19/19 18:45 03/19/19 18:46 DC 03/19/19 18:47 50 MCG Hyoscyamine Sulfate 0.125 mg ONCE ONCE PO 03/19/19 19:15 03/19/19 19:16 DC 03/19/19 19:27 0.125 MG Ondansetron HCl 8 mg ONCE ONCE IVP 03/19/19 17:45 03/19/19 17:46 DC 03/19/19 17:50 8 MG Promethazine HCl 25 mg ONCE ONCE IVP 03/19/19 19:15 03/19/19 19:16 DC 03/19/19 19:27 25 MG Vital Signs/I&O 03/19/19 03/19/19 17:18 20:42 Temp 36.8 Pulse 63 66 Resp 20 20 B/P (MAP) 199/115 (143) 153/84 Pulse Ox 98 99 O2 Delivery Room Air Room Air Blood Pressure Mean: 143 POS Progress Progress Note : Time: 20:10 Progress Note I have seen and evaluated the patient. I've informed her of her laboratory findings and EKG report. Her pain has been controlled with 2 doses of fentanyl. I did discuss the case with Dr. Starkey and he does not recommend anything further imaging at this time. He wishes to continue to have the patient follow- up with him in his office tomorrow at 10 AM. Patient agrees with plan of care, plans for discharge, return precautions were given. Departure Impression Primary Impression: Abdominal pain Additional Impression: Gallbladder pain Disposition: 01 HOME, SELF-CARE Condition: Stable/Unchanged Departure-Patient Inst. Decision time for Depature: 20:10 Referrals: DAVI PRESSLEY MD (PCP/Family) Primary Care Physician Patient Instructions: Acute Abdomen (Belly Pain) Add. Discharge Instructions: Keep your appointment as scheduled with Dr. Starkey tomorrow. Take medications as directed. Follow-up with your primary care provider within 1 week for recheck. Return back to the emergency room for worsening symptoms or concerns as needed. All discharge instructions reviewed with patient and/or family. Voiced understanding. TRINO RODGERS Mar 19, 2019 19:30 POS
[2019-03-19] MEDS ORDERED: RX-TRAMADOL 50 MG (ULTRAM) TAB PPK#4 PO STA (20:11)
[2019-03-19] MEDS ORDERED: RX-HYOSCYAMINE 0.125 MG SL (LEVSIN) PPK#6 SL STA (20:11)
[2019-03-19] MEDS ORDERED: RX-ONDANSETRON 4 MG ODT (ZOFRAN) PPK #4 PO STA (20:11)
[2019-03-19 20:42] VITALS: BP 153/84
[2019-03-21] MEDS ORDERED: FLUC150T2 PO (12:59)
== END 2019-03-19 20:42 | disposition home or self-care (01) ==
LOC: EDUNIT# 17:14 → ER 17:15
DX: K82.8 Other specified diseases of gallbladder (principal); R10.13 Epigastric pain; I10 Essential (primary) hypertension; K21.9 Gastro-esophageal reflux disease without esophagitis; K58.9 Irritable bowel syndrome, unspecified; Z87.19 Personal history of other diseases of the digestive system; Z88.5 Allergy status to narcotic agent; Z90.49 Acquired absence of other specified parts of digestive tract; Z82.49 Family history of ischemic heart disease and other diseases of the circulatory system
CPT/HCPCS: 36415; 80053; 81000; 82150; 83690; 84484; 85025; 93005; 96361; 96374; 96375; 96376

== ENCOUNTER 2019-03-20 11:27 | Outpatient (CLI) | payer BC ==
[~2019-03-20] VITALS: Ht 170 cm; Wt 71.8 kg
[2019-03-21] MEDS ORDERED: FLUC150T2 PO (12:59)
== END 2019-03-20 12:25 | disposition home or self-care (01) ==
LOC: PREOP 11:27
PROVIDERS: ATTEND Surgery
DX: Z01.818 Encounter for other preprocedural examination (principal)

== ENCOUNTER → 2019-04-19 | Outpatient (CLI) | payer BC ==
[~2019-04-19] MED LIST changes: +FLUC150T2 PO
[2019-04-19 11:53] LABS: BASOPHILS % (AUTO) 0 % (0-10); EOSINOPHILS # (AUTO) 0.1 10^3/uL (0.0-0.3); EOSINOPHILS % (AUTO) 1 % (0-10); HEMATOCRIT 42 % (35-52); HEMOGLOBIN 14.2 G/DL (11.5-16.0); LYMPHOCYTES # (AUTO) 1.4 X 10^3 (1.0-4.0); LYMPHOCYTES % (AUTO) 26 % (12-44); MEAN CORPUSCULAR HEMOGLOBIN 29 PG (25-34); MEAN CORPUSCULAR HGB CONC 34 G/DL (32-36); MEAN CORPUSCULAR VOLUME 87 FL (80-99); MEAN PLATELET VOLUME 11.2 FL (7.4-10.4); MONOCYTES % (AUTO) 19 % (0-12); NEUTROPHILS # (AUTO) 2.8 X 10^3 (1.8-7.8); NEUTROPHILS % (AUTO) 53 % (42-75); PLATELET COUNT 199 10^3/uL (130-400); RED CELL DISTRIBUTION WIDTH 12.6 % (10.0-14.5); WHITE BLOOD COUNT 5.3 10^3/uL (4.3-11.0)
[2019-04-19 12:08] LABS: CREATININE SERUM 1.12 MG/DL (0.60-1.30); POTASSIUM 4.2 MMOL/L (3.6-5.0)
--- NOTE | 2019-04-19 12:13 | Diagnostic Imaging Report ---
INDICATION: Cough, fatigue over the past month, shortness of breath.. TECHNIQUE: Two view chest 12:12 PM CORRELATION STUDY: None FINDINGS: The heart size, mediastinal configuration and pulmonary vasculature are within normal limits. The lungs are clear with no consolidating infiltrate. There is no significant pleural effusion or pneumothorax. Mildly advanced degenerative changes with endplate spurring of the thoracic spine. IMPRESSION: 1. Negative for acute abnormality of the chest. Dictated by: Dictated on workstation # [id number]
[2019-04-19 12:33] LABS: BAND NEUTROPHILS 2 %; EOSINOPHILS % (MANUAL) 3 %; ERYTHROCYTE SEDIMENTATION RATE 20 MM/HR (0-30); LYMPHOCYTES % (MANUAL) 33 %; MONOCYTES % (MANUAL) 13 %; NEUTROPHILS % (MANUAL) 49 %; RBC MORPH NORMAL
== END ==
LOC: RAD 11:20
PROVIDERS: ATTEND Family Medicine
DX: J18.9 Pneumonia, unspecified organism (principal)
CPT/HCPCS: 36415; 71046; 80048; 84443; 85007; 85027; 85652; 86141

== ENCOUNTER 2019-12-14 13:27 | Outpatient (CLI) | payer BC ==
[~2019-12-14] VITALS: Ht 170 cm; Wt 70.5 kg
[~2019-12-14 13:27] MED LIST changes: +LORA-404 PO; +NF-ESOM40C PO
== END 2019-12-14 13:37 | disposition home or self-care (01) ==
LOC: PREOP 13:27
PROVIDERS: ATTEND Internal Medicine
DX: Z01.818 Encounter for other preprocedural examination (principal)

== ENCOUNTER 2019-12-21 07:26 | Day surgery (SDC) | payer BC ==
--- NOTE | 2019-12-11 16:40 | HISTORY AND PHYSICAL ---
DATE OF SERVICE: COLONOSCOPY HISTORY AND PHYSICAL HISTORY OF PRESENT ILLNESS: The patient is a 59-year-old white female referred by Dr. Taveras for screening colonoscopy. She reports that she has been feeling well. She does report history of IBS with intermittent episodes of abdominal bloating and rare episodes of crampy abdominal pain. She denies bright red blood per rectum, melena or change in weight. She is not aware of any family history for colon cancer. Initially in the past, she reported her father had colon cancer, but she now believes that the primary was kidney (just around kidney) cancer that had spread widely throughout the abdomen involving the colon. PAST MEDICAL HISTORY: Significant for hypertension with stage III chronic renal disease. No known history for vascular disease. She works out on a regular basis without any reported dyspnea on exertion or chest discomfort. PAST SURGICAL HISTORY: Significant for cholecystectomy one year ago. She had an appendectomy in 2006 and some tendon surgery involving her forearm a number of years ago. SOCIAL HISTORY: She is with two adult children. No past smoking history with one to four alcoholic drinks per week. FAMILY HISTORY: Father had presumed renal cell carcinoma as noted above. She is not aware of any overt family history for primary colon cancer or any other family history for known GI tract malignancy. There is rather strong family history for vascular disease predominantly occurring in the 60s. Mother succumbed to complications of a heart attack in her mid-60s and brother had a heart attack in his 60s as well. They both smoked. REVIEW OF SYSTEMS: CONSTITUTIONAL: The patient denies change in weight, night sweats, chills, fever or fatigue. GASTROINTESTINAL: As noted in the HPI. PULMONARY: She does report some mild cough that she attributes to allergies with no hemoptysis and no sputum production. She denies wheezing. CARDIOVASCULAR: She denies orthopnea, PND, pedal edema, dyspnea on exertion, syncope or presyncope. PHYSICAL EXAMINATION: GENERAL: Reveals pleasant and well-appearing white female in no acute distress. VITAL SIGNS: Blood pressure 120/80, heart rate 70 and regular. HEENT: Unremarkable. Mallampati 1 pharyngeal configuration. CHEST: Clear to auscultation. CARDIOVASCULAR: Revealed a regular rate and rhythm without murmur, S3 or S4. ABDOMEN: Soft, supple without mass or organomegaly. There is some mild bilateral lower quadrant discomfort to palpation left lower quadrant greater than the right. No bruits are noted. No evidence for abdominal aortic aneurysm is noted to palpation. EXTREMITIES: Reveal no cyanosis, clubbing or edema. ASSESSMENT AND PLAN: The patient is set up for screening colonoscopy. Due to history of IBS and some reported difficulty with her first colonoscopy 10 years ago we will plan to do the procedure under Diprivan based anesthesia. Prep instructions with the Suprep kit were given and questions were answered. I thank you for the referral of this pleasant lady. Job ID: [id number] DocumentID: [id number] Dictated Date: 12/06/2019 08:34:15 Block Engraver Date: 12/06/2019 09:21:59 Dictated By: ALONZO GUEVARA MD MTDD
[2019-12-21] VITALS (8 sets, daily range): BP systolic 122–162; BP diastolic 67–95
[~2019-12-21] VITALS: Ht 170 cm; Wt 70.5 kg
[2019-12-21] MEDS ORDERED: PROPOFOL INJECTION 50 ML IV ONE (07:30)
[2019-12-21] MEDS ORDERED: LACTATED RINGERS 1,000 ML IV ONE (07:46)
[2019-12-21] MEDS ORDERED: LIDOCAINE JELLY 2% 6 ML SYRINGE MM PRN (08:00)
[2019-12-21] MEDS ORDERED: LACTATED RINGERS 1,000 ML IV PRN (08:00)
--- NOTE | 2019-12-21 08:33 | Pre-Op Note & Conscious Sedat ---
Pre-Operative Progress Note H&P Reviewed The H&P was reviewed, patient examined and no changes noted. Date H&P Reviewed: Dec 21, 2019 Time H&P Reviewed: 07:55 Conscious Sedation Pre-Proced ASA Score 2 For ASA 3 and 4: Consider anesthesia and medical clearance. Also, for patients with a history of failed moderate sedation consider anesthesia. Airway Lungs Heart ASA score ASA 1: a normal healthy patient ASA 2: a patient with a mild systemic disease (mid diabetes, controlled hypertension, obesity ASA 3: a patient with a severe systemic disease that limits activity (angina, COPD, prior Myocardial infarction) ASA 4: a patient with an incapacitating disease that is a constant threat to life (CHF, renal failure) ASA 5: a moribund patient not expected to survive 24 hrs. (ruptured aneurysm) ASA 6: a declared brain- patient whose organs are being harvested. For emergent operations, add the letter E after the classification Mallampati Classification Grade 1 Sedation Plan Analgesia, Amnesia, Plan communicated to team members, Discussed options with patient/fam, Discussed risks with patient/fam The patient is an appropriate candidate to undergo the planned procedure, sedation, and anesthesia. The patient immediately re-assessed prior to indication. ALONZO GUEVARA MD Dec 21, 2019 08:33
[2019-12-21] MEDS ORDERED: MIDAZOLAM 2 MG/2 ML (VERSED) VIAL ONE (08:43)
--- NOTE | 2019-12-21 11:31 | Anesthesia-General Post-Op ---
MAC Patient Condition Mental Status/LOC: Same as Preop Cardiovascular: Satisfactory Nausea/Vomiting: Absent Respiratory: Satisfactory Pain: Controlled Complications: Absent Post Op Complications Complications None Follow Up Care/Instructions Patient Instructions None needed. Anesthesiology Discharge Order Discharge Order Patient is doing well, no complaints, stable vital signs, no apparent adverse anesthesia problems. No complications reported per nursing. SAE CONRAD CRNA Dec 21, 2019 11:31
--- NOTE | 2019-12-21 17:29 | OPERATIVE REPORT ---
DATE OF SERVICE: COLONOSCOPY SUMMARY INDICATION FOR THE PROCEDURE: Screening colonoscopy. DESCRIPTION OF PROCEDURE: The patient was placed in the left lateral decubitus position. Prior to undergoing colonoscopy, digital rectal evaluation was performed. Anal sphincter tone was normal and the perianal reflexes intact. No abnormalities were noted on digital inspection of anal canal or distal rectal vault. The colonoscope was inserted into the rectum and under direct visualization advanced to cecum. The cecum was identified by identification of the ileocecal valve and cecal strap. Photographic documentation was obtained. Careful inspection was made as the colonoscope was withdrawn. The quality of prep was fair. The patient did have an irritable bowel type response to air insufflation and colonic manipulation despite Diprivan based anesthesia. FINDINGS: There was no evidence for internal or external hemorrhoids and the rectum and sigmoid colon were unremarkable. No evidence for diverticular disease was noted. A 5 mm sessile adenomatous appearing polyp was noted in the distal descending colon. It was biopsied and ablated with no subsequent blood loss. A diminutive polyp was noted at the splenic flexure. It too was biopsied and ablated with no subsequent blood loss. The transverse colon was unremarkable as was the hepatic flexure. A diminutive hyperplastic appearing polyp was noted in the mid ascending colon. It was biopsied and ablated with no blood loss. The remainder of the ascending colon and cecum were unremarkable. ASSESSMENT: Three small polyps were removed today. Location is being the distal descending colon, splenic flexure and mid ascending colon. Histopathology report revealed the mid ascending polyp and distal ascending polyps were tubular adenomas in the splenic flexure polyp was hyperplastic. No evidence for dysplasia was noted. Would abdicate repeat surveillance colonoscopy in 5 years. This was otherwise unremarkable colonoscopy to the cecum. Thank you for the referral of this pleasant lady. Job ID: [id number] DocumentID: [id number] Dictated Date: 12/21/2019 09:23:11 Senior Sharepoint Developer Date: 12/21/2019 17:28:23 Dictated By: ALONZO GUEVARA MD [facility]
== END 2019-12-21 10:10 | disposition home or self-care (01) ==
LOC: ENDO 07:26
PROVIDERS: ATTEND Internal Medicine
DX: Z12.11 Encounter for screening for malignant neoplasm of colon (principal); D12.2 Benign neoplasm of ascending colon; D12.4 Benign neoplasm of descending colon; K21.9 Gastro-esophageal reflux disease without esophagitis; I12.9 Hypertensive chronic kidney disease with stage 1 through stage 4 chronic kidney disease, or unspecified chronic kidney disease; N18.3 Chronic kidney disease, stage 3 (moderate); Z79.899 Other long term (current) drug therapy; Z88.5 Allergy status to narcotic agent; Z90.49 Acquired absence of other specified parts of digestive tract; Z80.51 Family history of malignant neoplasm of kidney
CPT/HCPCS: 88305

== ENCOUNTER → 2020-05-26 | Outpatient (CLI) | payer BC ==
[~2020-05-26] MED LIST changes: +CLN.1T PO; -CLON0.1T PO
--- NOTE | 2020-05-26 13:36 | Diagnostic Imaging Report ---
INDICATION: Cough, malaise, sinus congestion. COMPARISON: 04/19/2019 FINDINGS: Frontal and lateral views of the chest demonstrate normal heart size and pulmonary vascularity. The lungs are clear. There are no signs of infiltrate, pleural effusions or pneumothoraces. The visualized osseous structures show no acute abnormalities. IMPRESSION: 1. No acute process. No signs of infiltrates, effusions or pneumothoraces. Dictated by: Dictated on workstation # [id number]
--- NOTE | 2020-05-26 13:36 | Diagnostic Imaging Report ---
INDICATION: Cough. Malaise. Sinus congestion. COMPARISON: None. FINDINGS: Water's, Hua, and lateral views of the paranasal sinuses demonstrate no sinus opacification, air-fluid level, mucosal thickening, or bone destruction. No large soft tissue masses are seen. There are no radiopaque foreign bodies. IMPRESSION: Unremarkable radiographic exam of the paranasal sinuses. Dictated by: Dictated on workstation # [id number]
== END ==
LOC: RAD 12:38
PROVIDERS: ATTEND Family Medicine
DX: R05 Cough (principal); R53.81 Other malaise; R09.81 Nasal congestion
CPT/HCPCS: 70220; 71046; 87430; 87804

== ENCOUNTER → 2020-07-02 | Outpatient (CLI) | payer BC ==
[~2020-07-02] MED LIST changes: -METO10TA3 PO; +MTC10T PO; +RT-ALBUTEROL SULF 2.5 MG/3 ML PRE-MIX VIAL INH ONE
== END ==
LOC: RT 08:00
PROVIDERS: ATTEND Internal Medicine Critical Care Medicine
DX: Z13.83 Encounter for screening for respiratory disorder NEC (principal); R06.00 Dyspnea, unspecified
CPT/HCPCS: 94060; 94726; 94729

== ENCOUNTER → 2020-07-14 | Outpatient (CLI) | payer BC ==
[~2020-07-14] MED LIST changes: +CATHETER FLUSH 10 ML SYR IV PRN; +HOLD METFORMIN - RECEIVED CONTRAST 20 ML VIAL IV SCH; +IOHEXOL 350 MG/ML 100 ML (OMNIPAQUE 350) VIAL IV ONE; +NS 100 ML (IVPB) BAG IV ONE; -RT-ALBUTEROL SULF 2.5 MG/3 ML PRE-MIX VIAL INH ONE
--- NOTE | 2020-07-14 11:52 | Diagnostic Imaging Report ---
EXAMINATION: CT Chest with intravenous contrast. TECHNIQUE: Multiple contiguous axial images were obtained through the chest after the uneventful administration of intravenous contrast. All CT scans use one or more of the following dose optimizing techniques: automated exposure control, MA and/or KvP adjustment based on a patient size and exam type, or iterative reconstruction. HISTORY: History of pneumonia. COMPARISON: CT chest from 01/27/2017. FINDINGS: Thyroid: The thyroid is normal. Mediastinum: Heart size is normal without significant pericardial effusion. The aorta is normal in caliber. No suspicious lymphadenopathy. Lungs and airways: The lungs are clear without consolidation, pleural effusion, or pneumothorax. No suspicious pulmonary lesion. The airways are normal. Upper abdomen: The subphrenic structures are normal. Musculoskeletal: Degenerative changes of the spine without suspicious osseous lesion or compression fracture. IMPRESSION: 1. No acute abnormality in the chest. Dictated by: Dictated on workstation # [id number]
== END ==
LOC: RAD 10:27
PROVIDERS: ATTEND Internal Medicine Critical Care Medicine
DX: Z13.83 Encounter for screening for respiratory disorder NEC (principal); R06.00 Dyspnea, unspecified
CPT/HCPCS: 36415; 71260; 82565; 84520

== ENCOUNTER 2022-01-07 14:59 | Outpatient (CLI) | payer BC ==
[2022-01-07 14:55] VITALS: BP 176/98
[~2022-01-07 14:59] MED LIST changes: -CATHETER FLUSH 10 ML SYR IV PRN; -FLUC150T2 PO; +FLUC150T41 PO; -HOLD METFORMIN - RECEIVED CONTRAST 20 ML VIAL IV SCH; -IOHEXOL 350 MG/ML 100 ML (OMNIPAQUE 350) VIAL IV ONE; -NS 100 ML (IVPB) BAG IV ONE
[2022-01-07] MEDS ORDERED: NS IV 1000 ML 1,000 ML ONE (15:20)
[2022-01-07] MEDS ORDERED: NS IV 1000 ML 1,000 ML IV ONE (15:30)
[2022-01-07] MEDS ORDERED: NS IV 1000 ML 1,000 ML IV SCH (15:30)
[2022-01-07] MEDS ORDERED: PANTOPRAZOLE 40 MG (PROTONIX) VIAL IV ONE (15:30)
== END 2022-01-07 16:42 ==
LOC: SDC 14:59
PROVIDERS: ATTEND Nurse Practitioner Family
DX: E86.0 Dehydration (principal); I10 Essential (primary) hypertension; U09.9 Post COVID-19 condition, unspecified; R19.7 Diarrhea, unspecified
CPT/HCPCS: 96360; 96374

== ENCOUNTER 2022-10-21 09:43 | Outpatient (RCR) | payer BC ==
[~2022-10-21] VITALS: Ht 170.2 cm; Wt 72.4 kg
[2022-10-21] MEDS ORDERED: IMMUNE GLOBULIN IV SCH ×2 (10:30)
[2022-10-21] MEDS ORDERED: LORATADINE (CLARITIN) 10 MG TAB PO ONE (10:30)
[2022-10-21] MEDS ORDERED: ACETAMINOPHEN 500 MG TAB (TYLENOL) PO ONE (10:30)
[2022-10-21 13:30] VITALS: BP 166/88
== END 2022-10-22 ==
LOC: SDC 09:43
PROVIDERS: ATTEND Family Medicine
DX: D84.89 Other immunodeficiencies (principal)
CPT/HCPCS: 96365; 96366

== ENCOUNTER → 2022-11-18 | Outpatient (CLI) | payer BC ==
[~2022-11-18] VITALS: Ht 170 cm; Wt 70.9 kg
[~2022-11-18] MED LIST changes: +ACETAMINOPHEN 500 MG TABLET PO ONE; +IMMUNE GLOBULIN,GAMMA (IGG) 300 ML IV SCH; +LORATADINE (CLARITIN) 10 MG TAB PO ONE
[2022-11-18 09:15] VITALS: BP 117/69
== END ==
LOC: SDC 08:37
PROVIDERS: ATTEND Family Medicine
DX: D84.9 Immunodeficiency, unspecified (principal)
CPT/HCPCS: 96365; 96366; J1569

== ENCOUNTER → 2022-12-16 | Outpatient (CLI) | payer BC ==
[~2022-12-16] VITALS: Ht 172.7 cm; Wt 72.4 kg
[~2022-12-16] MED LIST changes: +ACETAMINOPHEN 500 MG TABLET ONE; +IMMUNE GLOBULIN GAMMA IV SCH; -IMMUNE GLOBULIN,GAMMA (IGG) 300 ML IV SCH; -LORATADINE (CLARITIN) 10 MG TAB PO ONE; +LORATADINE 10 MG TABLET PO ONE
[2022-12-16 08:15] VITALS: BP 134/83
[2022-12-16 08:55] VITALS: BP 132/73
[2022-12-16 09:10] VITALS: BP 148/74
[2022-12-16 11:16] VITALS: BP 156/78
== END ==
LOC: SDC 07:50
PROVIDERS: ATTEND Family Medicine
DX: D84.89 Other immunodeficiencies (principal); D80.1 Nonfamilial hypogammaglobulinemia
CPT/HCPCS: 96365; 96366; J1569

== ENCOUNTER → 2023-01-13 | Outpatient (CLI) | payer BC ==
[~2023-01-13] VITALS: Ht 170.2 cm; Wt 72.4 kg
[~2023-01-13] MED LIST changes: -ACETAMINOPHEN 500 MG TABLET ONE; -ACETAMINOPHEN 500 MG TABLET PO ONE; +ACETAMINOPHEN 500 MG TABLET PO SCH; -LORATADINE 10 MG TABLET PO ONE; +LORATADINE 10 MG TABLET PO SCH
[2023-01-13 08:15] VITALS: BP 115/69
[2023-01-13 08:31] LABS: BASOPHILS % (AUTO) 1 % (0-10); EOSINOPHILS # (AUTO) 0.1 10^3/uL (0.0-0.3); EOSINOPHILS % (AUTO) 2 % (0-10); HEMATOCRIT 41 % (35-52); HEMOGLOBIN 13.7 g/dL (11.5-16.0); LYMPHOCYTES # (AUTO) 1.7 10^3/uL (1.0-4.0); LYMPHOCYTES % (AUTO) 39 % (12-44); MEAN CORPUSCULAR HEMOGLOBIN 30 pg (25-34); MEAN CORPUSCULAR HGB CONC 34 g/dL (32-36); MEAN CORPUSCULAR VOLUME 89 fL (80-99); MEAN PLATELET VOLUME 11.4 fL (9.0-12.2); MONOCYTES # (AUTO) 0.5 10^3/uL (0.0-1.0); MONOCYTES % (AUTO) 10 % (0-12); NEUTROPHILS # (AUTO) 2.1 10^3/uL (1.8-7.8); NEUTROPHILS % (AUTO) 48 % (42-75); PLATELET COUNT 195 10^3/uL (130-400); WHITE BLOOD COUNT 4.4 10^3/uL (4.3-11.0)
[2023-01-13 08:47] LABS: ALBUMIN 4.2 GM/DL (3.2-4.5)
[2023-01-13 08:48] LABS: POTASSIUM 3.7 MMOL/L (3.6-5.0)
[2023-01-13 08:49] LABS: CALCIUM 9.6 MG/DL (8.5-10.1)
[2023-01-13 08:50] LABS: TOTAL PROTEIN 7.4 GM/DL (6.4-8.2)
[2023-01-13 08:52] LABS: BILIRUBIN,TOTAL 0.4 MG/DL (0.1-1.0)
[2023-01-13 08:53] LABS: CREATININE SERUM 0.85 MG/DL (0.60-1.30)
[2023-01-13 09:15] VITALS: BP 105/67
[2023-01-13 09:30] VITALS: BP 110/64
== END ==
LOC: SDC 08:04
PROVIDERS: ATTEND Family Medicine
DX: D84.89 Other immunodeficiencies (principal)
CPT/HCPCS: 36415; 80053; 82784; 85025; 96365; 96366; J1569

== ENCOUNTER → 2023-01-13 | Outpatient (CLI) | payer BC ==
[~2023-01-13] MED LIST changes: -ACETAMINOPHEN 500 MG TABLET PO SCH; -IMMUNE GLOBULIN GAMMA IV SCH; -LORATADINE 10 MG TABLET PO SCH
--- NOTE | 2023-01-13 20:16 | Diagnostic Imaging Report ---
PROCEDURE: MRI left upper extremity without contrast. TECHNIQUE: Multiplanar, multisequence non contrast-enhanced MRI of the left upper extremity was accomplished. INDICATION: Posterior elbow pain. COMPARISON: None available FINDINGS: LIGAMENTS: By non-arthrogram imaging, the medial and lateral ligamentous complexes of the elbow are intact. TENDONS AND MUSCLES: There is abnormal T2 hyperintense fluid signal within the expected position of the distal triceps. A 1.5 cm full-thickness gap between the triceps and olecranon. A few of the lateral insertional fibers of the triceps remain intact. The distal biceps and brachialis tendons are intact. The origin of the medial common flexor tendons is normal. The origin of the lateral common extensor tendon has tendinopathy without superimposed tear. The musculature of the forearm and distal upper arm is normal in bulk. BONES AND CARTILAGE: No fracture. Articular cartilage of the elbow is preserved. No osteochondral lesion. SOFT TISSUES: No significant elbow joint effusion. No olecranon or bicipitoradial bursitis. The ulnar nerve is normal in configuration without mass effect in the cubital tunnel. Normal fat planes around the median and radial nerves at the level of the elbow. IMPRESSION: 1. Full-thickness and near complete tear of the distal triceps has the proximal stump retracted approximately 1.5 cm. 2. Tendinopathy of the lateral common extensor tendons without superimposed acute tear. Dictated by: Dictated on workstation # [id number]
== END ==
LOC: RAD 08:01
PROVIDERS: ATTEND Orthopaedic Surgery
DX: S46.312A Strain of muscle, fascia and tendon of triceps, left arm, initial encounter (principal); M67.824 Other specified disorders of tendon, left elbow; X58.XXXA Exposure to other specified factors, initial encounter
CPT/HCPCS: 73221

== ENCOUNTER → 2023-02-10 | Outpatient (CLI) | payer BC ==
[~2023-02-10] VITALS: Wt 72.4 kg
[~2023-02-10] MED LIST changes: +ACETAMINOPHEN 500 MG TABLET PO SCH; +IMMUNE GLOBULIN GAMMA IV SCH; +LORATADINE 10 MG TABLET PO SCH
[2023-02-10 08:13] VITALS: BP 137/76
[2023-02-10 09:04] VITALS: BP 116/70
== END ==
LOC: SDC 07:42
PROVIDERS: ATTEND Family Medicine
DX: D84.89 Other immunodeficiencies (principal)
CPT/HCPCS: 96365; 96366; J1569

== ENCOUNTER 2023-03-10 07:55 | Outpatient (CLI) | payer BC ==
[~2023-03-10] VITALS: Wt 72.4 kg
[~2023-03-10 07:55] MED LIST changes: -ACETAMINOPHEN 500 MG TABLET PO SCH; -IMMUNE GLOBULIN GAMMA IV SCH; -LORATADINE 10 MG TABLET PO SCH; +NEBI5TAB2 PO; -NEBI5TAB8 PO
[2023-03-10] MEDS ORDERED: LORATADINE 10 MG TABLET PO ONE (08:15)
[2023-03-10] MEDS ORDERED: ACETAMINOPHEN 500 MG TABLET PO ONE (08:15)
[2023-03-10] MEDS ORDERED: IMMUNE GLOBULIN GAMMA IV SCH (08:30)
[2023-03-10 09:30] VITALS: BP 146/78
[2023-03-10 10:59] VITALS: BP 136/95
[2023-03-10 11:15] VITALS: BP 146/82
[2023-03-10 11:33] VITALS: BP 158/81
[2023-03-10 12:15] VITALS: BP 164/56
== END 2023-03-10 12:25 ==
LOC: SDC 07:55
PROVIDERS: ATTEND Family Medicine
DX: D84.89 Other immunodeficiencies (principal)
CPT/HCPCS: 96365; J1569

== ENCOUNTER 2023-03-22 08:37 | Outpatient (RCR) | payer BC | END 2023-03-24 | disposition home or self-care (01) | PROVIDERS: ATTEND Orthopaedic Surgery | DX: S46.312D Strain of muscle, fascia and tendon of triceps, left arm, subsequent encounter (principal); I10 Essential (primary) hypertension; J45.909 Unspecified asthma, uncomplicated; X58.XXXD Exposure to other specified factors, subsequent encounter; K21.9 Gastro-esophageal reflux disease without esophagitis ==